=== PATIENT | female | born 1945 | race Caucasian/White ===

== ENCOUNTER 2023-10-09 15:35 | Emergency (ER) | payer MEDICARE, BC ==
[2023-10-09 15:49] VITALS: RESP 18
[2023-10-09] MEDS ORDERED: SODIUM CHLORIDE 0.9% 500 ML 500 ML IV STA (16:04)
[2023-10-09 16:37] LABS: Basophils % (A) 0 %; Eosinophils # (A) 0.1 k/uL (0-0.7); Eosinophils % (A) 2 %; HCT 31.7 % (34.0-46.0); HGB 10.6 gm/dL (11.4-16.0); Lymphocytes # (A) 0.8 k/uL (1.0-4.8); Lymphocytes % (A) 12 %; MCH 34.1 pg (25.0-35.0); MCHC 33.4 g/dL (31.0-37.0); MCV 102.3 fL (80.0-100.0); Macrocytosis Slight; Mean Platelet Volume 9.8; Monocytes # (A) 0.6 k/uL (0-1.0); Monocytes % (A) 8 %; Neutrophils # (A) 5.2 k/uL (1.3-7.7); Neutrophils % (A) 76 %; Platelet Count 187 k/uL (150-450); RDW 13.8 % (11.5-15.5); WBC 6.8 k/uL (3.8-10.6)
[2023-10-09 16:47] LABS: ALT 18 U/L (4-34); AST 18 U/L (14-36); African American GFR (CKD) 36 (>60 ml/min/1.73 sqM); Alkaline Phosphatase 113 U/L (38-126); Anion Gap 11 mmol/L; Blood Urea Nitrogen 38 mg/dL (7-17); Calcium 9.2 mg/dL (8.4-10.2); Carbon Dioxide 25 mmol/L (22-30); Chloride 97 mmol/L (98-107); Glucose 223 mg/dL (74-99); Magnesium 2.2 mg/dL (1.6-2.3); Non-African American GFR(CKD) 31 (>60 ml/min/1.73 sqM); Potassium 4.9 mmol/L (3.5-5.1); Sodium 133 mmol/L (137-145); Total Bilirubin 1.2 mg/dL (0.2-1.3); Total Protein 6.5 g/dL (6.3-8.2)
[2023-10-09 16:48] LABS: INR 1.1 (<1.2); Partial Thromboplastin Time 23.4 sec (22.0-30.0); Prothrombin Time 12.1 sec (10.0-12.5)
--- NOTE | 2023-10-09 16:54 | XR ---
EXAMINATION TYPE: XR chest 2V DATE OF EXAM: 10/09/2023 4:45 PM CLINICAL INDICATION:Female, 78 years old with history of Weakness.; COMPARISON: Chest radiographs from 08/16/2023 TECHNIQUE: XR chest 2V Frontal and lateral views of the chest. FINDINGS: Lungs/Pleura: There is no evidence of pleural effusion, focal consolidation, or pneumothorax. Pulmonary vascularity: Pulmonary vascular congestion. Heart/mediastinum: Cardiomediastinal silhouette is enlarged and stable. Atherosclerotic calcificatio ns are seen in the aorta. Left atrial appendage occlusion device is present. Single-lead cardiac cond uction device overlying the left hemithorax with lead projecting over the right ventricle. Musculoskeletal: No acute osseous pathology. Other findings: None IMPRESSION: Cardiomegaly and mild pulmonary vascular congestion. Correlate with BNP for congestive heart failure.
[2023-10-09 16:56] LABS: Appearance,Urine Cloudy (Clear); Bacteria,Urine Many /hpf; Bilirubin,Urine Negative (Negative); Blood,Urine Negative (Negative); Color,Urine Colorless; Glucose,Urine (UA) Negative (Negative); Hyaline Casts,Urine 12 /lpf (0-2); Ketones,Urine Negative (Negative); Leukocyte Esterase,Urine Small (Negative); Mucus,Urine Rare /hpf; Nitrite,Urine Positive (Negative); Protein,Urine Negative (Negative); Specific Gravity,Urine 1.008 (1.001-1.035); Squamous Epithelial Cell,Urine 6 /hpf (0-4); Urobilinogen,Urine <2.0 mg/dL (<2.0); WBC,Urine 21 /hpf (0-5)
[2023-10-09] MEDS ORDERED: NITROFURANTOIN MONOHYD/M-CRYST 100 MG CAP PO STA (18:03)
--- NOTE | 2023-10-09 18:09 | ED ---
General Adult HPI - General Chief complaint: Weakness Stated complaint: SAMIRA Time Seen by Provider: 10/09/23 15:45 Source: patient, RN notes reviewed, old records reviewed Mode of arrival: ambulatory Limitations: no limitations - History of Present Illness Initial comments: This is a 78-year-old female who presents emergency Department complaining that she's become more weak over the last week and she says sometimes when this happens potassium was high so she wanted to come in and be evaluated. Patient denies any fever chills per patient denies any chest pain difficulty breathing shortest breath per patient denies any abdominal pain patient denies nausea vomiting or diarrhea. Patient denies any headache patient denies numbness weakness. Patient denies any lightheadedness or dizziness. - Related Data Home Medications Medication Instructions Recorded Confirmed ALPRAZolam [Xanax] 0.25 mg PO Q8H PRN 08/16/23 08/16/23 Aspirin EC [Ecotrin Low Dose] 81 mg PO DAILY 08/16/23 08/16/23 Clopidogrel [Plavix] 75 mg PO DAILY 08/16/23 08/16/23 Ferrous Sulfate [Iron (65 MG 325 mg PO DAILY 08/16/23 08/16/23 Elemental)] Gabapentin [Neurontin] 300 mg PO BID 08/16/23 08/16/23 Insulin Aspart [NovoLOG Flexpen] See Protocol SQ ACHS 08/16/23 08/16/23 Insulin Glargine,Hum.rec.anlog 20 units SQ HS 08/16/23 08/16/23 [Lantus Solostar Pen] Nitroglycerin Sl Tabs [Nitrostat] 0.4 mg SUBLINGUAL Q5M PRN 08/16/23 08/16/23 Pantoprazole [Protonix] 40 mg PO DAILY 08/16/23 08/16/23 Vitamin D Otc (Unknown) 1 tab PO FR 08/16/23 08/16/23 allopurinoL 100 mg PO DAILY 08/16/23 08/16/23 calcitrioL [Calcitriol] 0.25 mcg PO FR 08/16/23 08/16/23 Previous Rx's Medication Instructions Recorded Furosemide [Lasix] 40 mg PO DAILY #0 08/18/23 carvediloL [Coreg*] 12.5 mg PO BID-W/MEALS #60 tab 08/18/23 Nitrofurantoin Monohyd/M-Cryst 100 mg PO Q12HR #14 cap 10/09/23 [Macrobid] Allergies Allergy/AdvReac Type Severity Reaction Status Date / Time cephalexin [From Keflex] Allergy Rash/Hives Verified 10/09/23 15:46 ciprofloxacin [From Cipro] Allergy Anaphylaxis Verified 10/09/23 15:46 levofloxacin [From Levaquin] Allergy Anaphylaxis Verified 10/09/23 15:46 mushroom Allergy Chest Pain Verified 10/09/23 15:46 simvastatin Allergy Unknown Verified 10/09/23 15:46 tramadol Allergy Anaphylaxis Verified 10/09/23 15:46 morphine AdvReac Vomiting Verified 10/09/23 15:46 Review of Systems ROS Statement: Those systems with pertinent positive or pertinent negative responses have been documented in the HPI. ROS Other: All systems not noted in ROS Statement are negative. Past Medical History Past Medical History: Chest Pain / Angina, Myocardial Infarction (AR) Additional Past Medical History / Comment(s): Kidney failure CKD Stage III, CHF, AR x3 Last Myocardial Infarction Date:: 2015 History of Any Multi-Drug Resistant Organisms: None Reported Past Surgical History: Appendectomy, Heart Catheterization With Stent, Hysterectomy, Pacemaker Additional Past Surgical History / Comment(s): CABG, Valve Repair, Cardiac Stents x7 Past Anesthesia/Blood Transfusion Reactions: No Reported Reaction Date of Last Stent Placement:: 2015 Type of Cardiac Device: AICD Device Placement Date:: 2015 Past Psychological History: No Psychological Hx Reported Smoking Status: Never smoker Past Alcohol Use History: None Reported Past Drug Use History: None Reported General Exam - General Exam Comments Initial Comments: GENERAL: Patient is well-developed and well-nourished. Patient is nontoxic and well- hydrated and is in mild distress. ENT: Neck is soft and supple. No significant lymphadenopathy is noted. Oropharynx is clear. Moist mucous membranes. Neck has full range of motion without eliciting any pain. EYES: The sclera were anicteric and conjunctiva were pink and moist. Extraocular movements were intact and pupils were equal round and reactive to light. Eyelids were unremarkable. PULMONARY: Unlabored respirations. Good breath sounds bilaterally. No audible rales rhonchi or wheezing was noted. CARDIOVASCULAR: There is a regular rate and rhythm without any murmurs gallops or rubs. ABDOMEN: Soft and nontender with normal bowel sounds. SKIN: Skin is clear with no lesions or rashes and otherwise unremarkable. NEUROLOGIC: Patient is alert and oriented x3. Cranial nerves II through XII are grossly intact. Motor and sensory are also intact. Normal speech, volume and content. Symmetrical smile. MUSCULOSKELETAL: Normal extremities with adequate strength and full range of motion. No lower e xtremity swelling or edema. No calf tenderness. LYMPHATICS: No significant lymphadenopathy is noted PSYCHIATRIC: Normal psychiatric evaluation. Limitations: no limitations Course Vital Signs 10/09/23 10/09/23 10/09/23 15:36 16:05 17:56 Temperature 98.6 F Pulse Rate 62 67 Pulse Rate [ 60 Stitching Machine Setter ] Respiratory 18 18 Rate Blood Pressure 142/58 143/75 O2 Sat by Pulse 95 97 Oximetry Medical Decision Making - Medical Decision Making EKG is interpreted by myself. EKG shows atrial fibrillation at 50 bpm QRS 142 QT intervals 46 QTC is 483. Patient's EKG shows a right bundle branch block. Was pt. sent in by a medical professional or institution (, PA, FARM EQUIPMENT SERVICE TECHNICIAN, urgent care, hospital, or retirement...) When possible be specific @ -No Did you speak to anyone other than the patient for history (EMS, parent, family, police, friend...)? What history was obtained from this source @ -No Did you review nursing and triage notes (agree or disagree)? Why? @ -I reviewed and agree with nursing and triage notes Were old charts reviewed (outside hosp., previous admission, EMS record, old EKG, old radiological studies, urgent care reports/EKG's, retirement records)? Report findings @ -No old charts were reviewed Differential Diagnosis (chest pain, altered mental status, abdominal pain women, abdominal pain men, vaginal bleeding, weakness, fever, dyspnea, syncope, headache, dizziness, GI bleed, back pain, seizure, CVA, palpatations, mental health, musculoskeletal)? @ -Differential Weakness: Hypoglycemia, shock, sepsis, hyponatremia, anemia, infection, AR, ETOH, adverse medicine reaction, overdose, stroke, this is not meant to be an all-inclusive list. EKG interpreted by me (3pts min.). @ -As above X-rays interpreted by me (1pt min.). @ -Chest X-ray shows no acute abnormality CT interpreted by me (1pt min.). @ -None done U/S interpreted by me (1pt. min.). @ -None done What testing was considered but not performed or refused? (CT, X-rays, U/S, labs)? Why? @ -None What meds were considered but not given or refused? Why? @ -None Did you discuss the management of the patient with other professionals (professionals i.e. , PA, FARM EQUIPMENT SERVICE TECHNICIAN, lab, RT, psych nurse, medical social consultant, engine generator assembler, teacher, prison officer, wrapper caser)? Give summary @ -No Was smoking cessation discussed for >3mins.? @ -No Was critical care preformed (if so, how long)? @ -No Were there social determinants of health that impacted care today? How? (Homelessness, low income, unemployed, alcoholism, drug addiction, transportation, low edu. Level, literacy, decrease access to med. care, fpc, rehab)? @ -No Was there de-escalation of care discussed even if they declined (Discuss DNR or withdrawal of care, Hospice)? DNR status @ -No What co-morbidities impacted this encounter? (DM, HTN, Smoking, COPD, CAD, Cancer, CVA, ARF, Chemo, Hep., AIDS, mental health diagnosis, sleep apnea, morbid obesity)? @ -None Was patient admitted / discharged? Hospital course, mention meds given and route, prescriptions, significant lab abnormalities, going to OR and other pert inent info. @ -I will back in the room and spoke with the patient about her results. Patient has a urinary tract infection so I gave her Macrodantin here and I prescribed Macrodantin for home. Patient was comfortable going home Undiagnosed new problem with uncertain prognosis? @ -No Drug Therapy requiring intensive monitoring for toxicity (Heparin, Nitro, Insulin, Cardizem)? @ -No Were any procedures done? @ -No Diagnosis/symptom? @ -Acute infection Acute, or Chronic, or Acute on Chronic? @ -Acute Uncomplicated (without systemic symptoms) or Complicated (systemic symptoms)? @ -Complicated Side effects of treatment? @ -No Exacerbation, Progression, or Severe Exacerbation? @ -No Poses a threat to life or bodily function? How? (Chest pain, USA, AR, pneumonia, PE, COPD, DKA, ARF, appy, cholecystitis, CVA, Diverticulitis, Homicidal, Suicidal, threat to staff... and all critical care pts) @ -No - Lab Data Result diagrams: 10/09/23 16:21 10/09/23 16:21 Lab Results 10/09/23 10/09/23 10/09/23 Range/Units 16:21 16:21 16:21 WBC 6.8 (3.8-10.6) k/uL RBC 3.10 L (3.80-5.40) m/uL Hgb 10.6 L (11.4-16.0) gm/dL Hct 31.7 L (34.0-46.0) % MCV 102.3 H (80.0-100.0) fL MCH 34.1 (25.0-35.0) pg MCHC 33.4 (31.0-37.0) g/dL RDW 13.8 (11.5-15.5) % Plt Count 187 (150-450) k/uL MPV 9.8 Neutrophils % 76 % Lymphocytes % 12 % Monocytes % 8 % Eosinophils % 2 % Basophils % 0 % Neutrophils # 5.2 (1.3-7.7) k/uL Lymphocytes # 0.8 L (1.0-4.8) k/uL Monocytes # 0.6 (0-1.0) k/uL Eosinophils # 0.1 (0-0.7) k/uL Basophils # 0.0 (0-0.2) k/uL Macrocytosis Slight PT 12.1 (10.0-12.5) sec INR 1.1 (<1.2) APTT 23.4 (22.0-30.0) sec Sodium (137-145) mmol/L Potassium (3.5-5.1) mmol/L Chloride (98-107) mmol/L Carbon Dioxide (22-30) mmol/L Anion Gap mmol/L BUN (7-17) mg/dL Creatinine (0.52-1.04) mg/dL Est GFR (CKD-EPI)AfAm (>60 ml/min/1.73 sqM) Est GFR (CKD-EPI)NonAf (>60 ml/min/1.73 sqM) Glucose (74-99) mg/dL Plasma Lactic Acid David (0.7-2.0) mmol/L Calcium (8.4-10.2) mg/dL Magnesium (1.6-2.3) mg/dL Total Bilirubin (0.2-1.3) mg/dL AST (14-36) U/L ALT (4-34) U/L Alkaline Phosphatase (38-126) U/L Troponin I (0.000-0.034) ng/mL Total Protein (6.3-8.2) g/dL Albumin (3.5-5.0) g/dL Urine Color Colorless Urine Appearance Cloudy H (Clear) Urine pH 5.0 (5.0-8.0) Ur Specific [place] 1.008 (1.001-1.035) Urine Protein Negative (Negative) Urine Glucose (UA) Negative (Negative) Urine Ketones Negative (Negative) Urine Blood Negative (Negative) Urine Nitrite Positive H (Negative) Urine Bilirubin Negative (Negative) Urine Urobilinogen <2.0 (<2.0) mg/dL Ur Leukocyte Esterase Small H (Negative) Urine WBC 21 H (0-5) /hpf Ur Squamous Epith Cells 6 H (0-4) /hpf Urine Bacteria Many H (None) /hpf Hyaline Casts 12 H (0-2) /lpf Urine Mucus Rare H (None) /hpf 10/09/23 10/09/23 10/09/23 Range/Units 16:21 16:21 16:21 WBC (3.8-10.6) k/uL RBC (3.80-5.40) m/uL Hgb (11.4-16.0) gm/dL Hct (34.0-46.0) % MCV (80.0-100.0) fL MCH (25.0-35.0) pg MCHC (31.0-37.0) g/dL RDW (11.5-15.5) % Plt Count (150-450) k/uL MPV Neutrophils % % Lymphocytes % % Monocytes % % Eosinophils % % Basophils % % Neutrophils # (1.3-7.7) k/uL Lymphocytes # (1.0-4.8) k/uL Monocytes # (0-1.0) k/uL Eosinophils # (0-0.7) k/uL Basophils # (0-0.2) k/uL Macrocytosis PT (10.0-12.5) sec INR (<1.2) APTT (22.0-30.0) sec Sodium 133 L (137-145) mmol/L Potassium 4.9 (3.5-5.1) mmol/L Chloride 97 L (98-107) mmol/L Carbon Dioxide 25 (22-30) mmol/L Anion Gap 11 mmol/L BUN 38 H (7-17) mg/dL Creatinine 1.58 H (0.52-1.04) mg/dL Est GFR (CKD-EPI)AfAm 36 (>60 ml/min/1.73 sqM) Est GFR (CKD-EPI)NonAf 31 (>60 ml/min/1.73 sqM) Glucose 223 H (74-99) mg/dL Plasma Lactic Acid David 1.0 (0.7-2.0) mmol/L Calcium 9.2 (8.4-10.2) mg/dL Magnesium 2.2 (1.6-2.3) mg/dL Total Bilirubin 1.2 (0.2-1.3) mg/dL AST 18 (14-36) U/L ALT 18 (4-34) U/L Alkaline Phosphatase 113 (38-126) U/L Troponin I <0.012 (0.000-0.034) ng/mL Total Protein 6.5 (6.3-8.2) g/dL Albumin 4.0 (3.5-5.0) g/dL Urine Color Urine Appearance (Clear) Urine pH (5.0-8.0) Ur Specific [place] (1.001-1.035) Urine Protein (Negative) Urine Glucose (UA) (Negative) Urine Ketones (Negative) Urine Blood (Negative) Urine Nitrite (Negative) Urine Bilirubin (Negative) Urine Urobilinogen (<2.0) mg/dL Ur Leukocyte Esterase (Negative) Urine WBC (0-5) /hpf Ur Squamous Epith Cells (0-4) /hpf Urine Bacteria (None) /hpf Hyaline Casts (0-2) /lpf Urine Mucus (None) /hpf Disposition Clinical Impression: Urinary tract infection Disposition: HOME SELF-CARE Condition: Good Instructions (If sedation given, give patient instructions): Urinary Tract Infection in Women (ED) Prescriptions: Nitrofurantoin Monohyd/M-Cryst [Macrobid] 100 mg PO Q12HR #14 cap Is patient prescribed a controlled substance at d/c from ED?: No Referrals: Jayesh Watson MD [Primary Care Provider] - 1-2 days
[2023-10-09 18:23] VITALS: BP 143/75; PULSE 67
[2023-10-09 19:12] VITALS: TEMP 98.1
== END 2023-10-09 18:54 | disposition home or self-care (01) ==
LOC: EC 15:35
DX: N39.0 Urinary tract infection, site not specified (principal); B97.0 Adenovirus as the cause of diseases classified elsewhere; I25.2 Old myocardial infarction; I50.9 Heart failure, unspecified; N18.30 Chronic kidney disease, stage 3 unspecified; Z79.82 Long term (current) use of aspirin; Z79.4 Long term (current) use of insulin; Z79.899 Other long term (current) drug therapy; Z88.1 Allergy status to other antibiotic agents; Z88.5 Allergy status to narcotic agent; Z88.8 Allergy status to other drugs, medicaments and biological substances; Z95.5 Presence of coronary angioplasty implant and graft; Z95.1 Presence of aortocoronary bypass graft
CPT/HCPCS: 36415; 71046; 80053; 81001; 83605; 83735; 84484; 85025; 85610; 85730; 87077; 87086; 87186; 93005; 96360; 99285

== ENCOUNTER 2024-05-26 15:09 | Emergency (ER) | payer MEDICARE, BC ==
--- NOTE | 2024-05-26 15:19 | ED ---
Abdominal Pain HPI - General Stated Complaint: Constipation Time Seen by Provider: 05/26/24 15:14 Source: RN notes reviewed, old records reviewed Mode of arrival: EMS Limitations: no limitations - History of Present Illness Initial Comments: This is a 79-year-old female to the ER for evaluation of abdominal pain. Patient presents today for evaluation of severe abdominal pain positive nausea no vomiting decreased bowel movements with usually normal bowel movement history MD Complaint: abdominal pain -: days(s) Location: periumbilical, epigastric Radiation: epigastric Migration to: no migration Severity: moderate Severity scale (1-10): 7 Quality: cramping, stabbing Consistency: constant Improves With: nothing Worsens With: nothing Associated Symptoms: nausea, vomiting Treatments Prior to Arrival: other (0) - Related Data Home Medications Medication Instructions Recorded Confirmed ALPRAZolam [Xanax] 0.25 mg PO Q8H PRN 08/16/23 08/16/23 Aspirin EC [Ecotrin Low Dose] 81 mg PO DAILY 08/16/23 08/16/23 Clopidogrel [Plavix] 75 mg PO DAILY 08/16/23 08/16/23 Ferrous Sulfate [Iron (65 MG 325 mg PO DAILY 08/16/23 08/16/23 Elemental)] Gabapentin [Neurontin] 300 mg PO BID 08/16/23 08/16/23 Insulin Aspart [NovoLOG Flexpen] See Protocol SQ ACHS 08/16/23 08/16/23 Insulin Glargine,Hum.rec.anlog 20 units SQ HS 08/16/23 08/16/23 [Lantus Solostar Pen] Nitroglycerin Sl Tabs [Nitrostat] 0.4 mg SUBLINGUAL Q5M PRN 08/16/23 08/16/23 Pantoprazole [Protonix] 40 mg PO DAILY 08/16/23 08/16/23 Vitamin D Otc (Unknown) 1 tab PO FR 08/16/23 08/16/23 allopurinoL 100 mg PO DAILY 08/16/23 08/16/23 calcitrioL 0.25 mcg PO FR 08/16/23 08/16/23 Previous Rx's Medication Instructions Recorded Furosemide [Lasix] 40 mg PO DAILY #0 08/18/23 carvediloL [Coreg*] 12.5 mg PO BID-W/MEALS #60 tab 08/18/23 Nitrofurantoin Monohyd/M-Cryst 100 mg PO Q12HR #14 cap 10/09/23 [Macrobid] Allergies Allergy/AdvReac Type Severity Reaction Status Date / Time cephalexin [From Keflex] Allergy Rash/Hives Verified 10/09/23 15:46 ciprofloxacin [From Cipro] Allergy Anaphylaxis Verified 10/09/23 15:46 levofloxacin [From Levaquin] Allergy Anaphylaxis Verified 10/09/23 15:46 mushroom Allergy Chest Pain Verified 10/09/23 15:46 simvastatin Allergy Unknown Verified 10/09/23 15:46 tramadol Allergy Anaphylaxis Verified 10/09/23 15:46 morphine AdvReac Vomiting Verified 10/09/23 15:46 Review of Systems ROS Statement: Those systems with pertinent positive or pertinent negative responses have been documented in the HPI. ROS Other: All systems not noted in ROS Statement are negative. Past Medical History Past Medical History: Chest Pain / Angina, Myocardial Infarction (MO) Additional Past Medical History / Comment(s): Kidney failure CKD Stage III, CHF, [place] x3 Last Myocardial Infarction Date:: 2015 History of Any Multi-Drug Resistant Organisms: None Reported Past Surgical History: Appendectomy, Heart Catheterization With Stent, Hysterectomy, Pacemaker Additional Past Surgical History / Comment(s): CABG, Valve Repair, Cardiac Stents x7 Past Anesthesia/Blood Transfusion Reactions: No Reported Reaction Date of Last Stent Placement:: 2015 Type of Cardiac Device: AICD Device Placement Date:: 2015 Past Psychological History: No Psychological Hx Reported Smoking Status: Never smoker Past Alcohol Use History: None Reported Past Drug Use History: None Reported General Exam General appearance: alert, in no apparent distress, anxious Head exam: Present: atraumatic, normocephalic, normal inspection Eye exam: Present: normal appearance, PERRL, EOMI. Absent: scleral icterus, conjunctival injection, periorbital swelling ENT exam: Present: normal exam, mucous membranes moist Neck exam: Present: normal inspection. Absent: tenderness, meningismus, ly mphadenopathy Respiratory exam: Present: normal lung sounds bilaterally. Absent: respiratory distress, wheezes, rales, rhonchi, stridor Cardiovascular Exam: Present: regular rate, bradycardia, normal heart sounds. Absent: systolic murmur, diastolic murmur, rubs, gallop, clicks GI/Abdominal exam: Present: soft, normal bowel sounds. Absent: distended, tenderness, guarding, rebound, rigid Extremities exam: Present: normal inspection, full ROM, normal capillary refill. Absent: tenderness, pedal edema, joint swelling, calf tenderness Back exam: Present: normal inspection Neurological exam: Present: alert, oriented X3, CN II-XII intact Psychiatric exam: Present: normal affect, normal mood Skin exam: Present: warm, dry, intact, normal color. Absent: rash Course Vital Signs 05/26/24 05/26/24 15:14 17:33 Temperature 98.7 F Pulse Rate 56 L 55 L Respiratory 18 18 Rate Blood Pressure 146/63 140/80 O2 Sat by Pulse 97 96 Oximetry - Reevaluation(s) Reevaluation #1: 05/26/24 15:29 Records reviewed Reevaluation #2: 05/26/24 15:29 Patient symptoms improved Reevaluation #3: Patient informed of results and questions answered Reevaluation #4: Was pt. sent in by a medical professional or institution (, PA, LIFE SCIENCE RESEARCH ASSISTANT, urgent care, hospital, or senior care...) When possible be specific @ -no Did you speak to anyone other than the patient for history (EMS, parent, family, police, friend...)? What history was obtained from this source @ -no Did you review nursing and triage notes (agree or disagree)? Why? @ -agree Are old charts reviewed (outside hosp., previous admission, EMS record, old EKG, old radiological studies, urgent care reports/EKG's, senior care records)? Report findings @ -yes Differential Diagnosis (chest pain, altered mental status, abdominal pain women, abdominal pain men, vaginal bleeding, weakness, fever, dyspnea, syncope, headache, dizziness, GI bleed, back pain, seizure, CVA, palpatations, mental health, musculoskeletal)? @ -prior EKG interpreted by me (3pts min.). @ -yes X-rays interpreted by me (1pt min.). @ -yes negative for acute disease CT interpreted by me (1pt min.). @ -Yes negative for acute disease U/S interpreted by me (1pt. min.). @ -no What testing was considered but not performed or refused? (CT, X-rays, U/S, labs)? Why? @ -none What meds were considered but not given or refused? Why? @ -none Did you discuss the management of the patient with other professionals (professionals i.e. , PA, LIFE SCIENCE RESEARCH ASSISTANT, lab, RT, psych nurse, social sciences chair, salesperson surgical appliances, teacher, humane officer, trimming caser)? Give summary @ -no Was smoking cessation discussed for >3mins.? @ -no Was critical care preformed (if so, how long)? @ -no Were there social determinants of health that impacted care today? How? (Homelessness, low income, unemployed, alcoholism, drug addiction, transportation, low edu. Level, literacy, decrease access to med. care, longterm, rehab)? @ -none Was there de-escalation of care discussed even if they declined (Discuss DNR or withdrawal of care, Hospice)? DNR status @ -no What co-morbidities impacted this encounter? (DM, HTN, Smoking, COPD, CAD, Cancer, CVA, ARF, Chemo, Hep., AIDS, mental health diagnosis, sleep apnea, morbid obesity)? @ -none Was patient admitted / discharged? Hospital course, mention meds given and route, prescriptions, significant lab abnormalities, going to OR and other pertinent info. @ - 79 female with nonspecific abdominal pain and no acute cause found. Patient's pain is well-controlled here in the ER feels well and can be discharged home Discharge Undiagnosed new problem with uncertain prognosis? @ -no Drug Therapy requiring intensive monitoring for toxicity (Heparin, Nitro, Insulin, Cardizem)? @ -no Were any procedures done? @ -no Diagnosis/symptom? @ -abdominal pain NOS Acute, or Chronic, or Acute on Chronic? @ -Acute Uncomplicated (without systemic symptoms) or Complicated (systemic symptoms)? @ -Complicated Side effects of treatment? @ -no Exacerbation, Progression, or Severe Exacerbation? @ -exacerbation Poses a threat to life or bodily function? How? (Chest pain, [place], MO, pneumonia, PE, COPD, DKA, ARF, appy, cholecystitis, CVA, Diverticulitis, Homicidal, Suicidal, threat to staff... and all critical care pts) @ -yes extremes of age Reevaluation #5: Differential Abdominal Pain Women: Appendicitis, Cholecystitis, diverticulosis, ischemic bowel, pancreatitis, hepatitis, UTI, gastroenteritis, AAA, incarcerated hernia, bowel obstruction, constipation, inflammatory bowel, hepatitis, peptic ulcer disease, splenic infarction, perforated viscus, vulvitis, ovarian torsion, PID, kidney stone, placenta abruption, this is not meant to be an all-inclusive list Medical Decision Making - Medical Decision Making 79 female with nonspecific abdominal pain and no acute cause found. Patient's pain is well-controlled here in the ER feels well and can be discharged home - Lab Data Result diagrams: 05/26/24 15:42 05/26/24 16:50 Lab Results 05/26/24 05/26/24 05/26/24 Range/Units 15:42 15:42 15:45 WBC 8.0 (3.8-10.6) k/uL RBC 3.20 L (3.80-5.40) m/uL Hgb 10.8 L (11.4-16.0) gm/dL Hct 33.5 L (34.0-46.0) % MCV 104.5 H (80.0-100.0) fL MCH 33.9 (25.0-35.0) pg MCHC 32.4 (31.0-37.0) g/dL RDW 14.0 (11.5-15.5) % Plt Count 171 (150-450) k/uL MPV 10.4 Neutrophils % 82 % Lymphocytes % 8 % Monocytes % 7 % Eosinophils % 1 % Basophils % 0 % Neutrophils # 6.6 (1.3-7.7) k/uL Lymphocytes # 0.6 L (1.0-4.8) k/uL Monocytes # 0.6 (0-1.0) k/uL Eosinophils # 0.1 (0-0.7) k/uL Basophils # 0.0 (0-0.2) k/uL Macrocytosis Moderate Sodium (137-145) mmol/L Potassium (3.5-5.1) mmol/L Chloride (98-107) mmol/L Carbon Dioxide (22-30) mmol/L Anion Gap mmol/L BUN (7-17) mg/dL Creatinine (0.52-1.04) mg/dL Est GFR (CKD-EPI)AfAm (>60 ml/min/1.73 sqM) Est GFR (CKD-EPI)NonAf (>60 ml/min/1.73 sqM) Glucose (74-99) mg/dL Plasma Lactic Acid David 0.7 (0.7-2.0) mmol/L Calcium (8.4-10.2) mg/dL Phosphorus (2.5-4.5) mg/dL Magnesium (1.6-2.3) mg/dL Total Bilirubin (0.2-1.3) mg/dL AST (14-36) U/L ALT (4-34) U/L Alkaline Phosphatase (38-126) U/L Troponin I <0.012 (0.000-0.034) ng/mL NT-Pro-B Natriuret Pep pg/mL Total Protein (6.3-8.2) g/dL Albumin (3.5-5.0) g/dL Amylase (30-110) U/L Lipase (23-300) U/L Urine Color Urine Appearance (Clear) Urine pH (5.0-8.0) Ur Specific [place] (1.001-1.035) Urine Protein (Negative) Urine Glucose (UA) (Negative) Urine Ketones (Negative) Urine Blood (Negative) Urine Nitrite (Negative) Urine Bilirubin (Negative) Urine Urobilinogen (<2.0) mg/dL Ur Leukocyte Esterase (Negative) Urine WBC (0-5) /hpf Ur Squamous Epith Cells (0-4) /hpf Urine Bacteria (None) /hpf 05/26/24 05/26/24 05/26/24 Range/Units 15:47 16:50 16:50 WBC (3.8-10.6) k/uL RBC (3.80-5.40) m/uL Hgb (11.4-16.0) gm/dL Hct (34.0-46.0) % MCV (80.0-100.0) fL MCH (25.0-35.0) pg MCHC (31.0-37.0) g/dL RDW (11.5-15.5) % Plt Count (150-450) k/uL MPV Neutrophils % % Lymphocytes % % Monocytes % % Eosinophils % % Basophils % % Neutrophils # (1.3-7.7) k/uL Lymphocytes # (1.0-4.8) k/uL Monocytes # (0-1.0) k/uL Eosinophils # (0-0.7) k/uL Basophils # (0-0.2) k/uL Macrocytosis Sodium 129 L (137-145) mmol/L Potassium 4.7 (3.5-5.1) mmol/L Chloride 93 L (98-107) mmol/L Carbon Dioxide 30 (22-30) mmol/L Anion Gap 6 mmol/L BUN 53 H (7-17) mg/dL Creatinine 1.76 H (0.52-1.04) mg/dL Est GFR (CKD-EPI)AfAm 31 (>60 ml/min/1.73 sqM) Est GFR (CKD-EPI)NonAf 27 (>60 ml/min/1.73 sqM) Glucose 141 H (74-99) mg/dL Plasma Lactic Acid David (0.7-2.0) mmol/L Calcium 9.2 (8.4-10.2) mg/dL Phosphorus 3.8 (2.5-4.5) mg/dL Magnesium 2.1 (1.6-2.3) mg/dL Total Bilirubin 1.6 H (0.2-1.3) mg/dL AST 19 (14-36) U/L ALT 12 (4-34) U/L Alkaline Phosphatase 82 (38-126) U/L Troponin I (0.000-0.034) ng/mL NT-Pro-B Natriuret Pep 43675 pg/mL Total Protein 6.3 (6.3-8.2) g/dL Albumin 4.1 (3.5-5.0) g/dL Amylase 49 (30-110) U/L Lipase 74 (23-300) U/L Urine Color Colorless Urine Appearance Clear (Clear) Urine pH 6.0 (5.0-8.0) Ur Specific [place] 1.007 (1.001-1.035) Urine Protein Negative (Negative) Urine Glucose (UA) Negative (Negative) Urine Ketones Negative (Negative) Urine Blood Negative (Negative) Urine Nitrite Negative (Negative) Urine Bilirubin Negative (Negative) Urine Urobilinogen <2.0 (<2.0) mg/dL Ur Leukocyte Esterase Trace H (Negative) Urine WBC 3 (0-5) /hpf Ur Squamous Epith Cells 3 (0-4) /hpf Urine Bacteria Many H (None) /hpf - EKG Data -: EKG Interpreted by Me (EKG is sinus bradycardia 55 NE 222 QRS 166 QTc 496) - Radiology Data Radiology results: report reviewed (CT abdomen pelvis and chest x-ray is negative for acute disease), image reviewed Disposition Clinical Impression: Abdominal pain Disposition: HOME SELF-CARE Condition: Good Instructions (If sedation given, give patient instructions): Abdominal Pain (ED) Is patient prescribed a controlled substance at d/c from ED?: No Referrals: Jayesh Watson MD [Primary Care Provider] - 1-2 days Time of Disposition: 17:00
[2024-05-26 15:21] VITALS: RESP 18; TEMP 98.7
[2024-05-26 15:59] LABS: Basophils % (A) 0 %; Eosinophils # (A) 0.1 k/uL (0-0.7); Eosinophils % (A) 1 %; HCT 33.5 % (34.0-46.0); HGB 10.8 gm/dL (11.4-16.0); Lymphocytes # (A) 0.6 k/uL (1.0-4.8); Lymphocytes % (A) 8 %; MCH 33.9 pg (25.0-35.0); MCHC 32.4 g/dL (31.0-37.0); MCV 104.5 fL (80.0-100.0); Macrocytosis Moderate; Mean Platelet Volume 10.4; Monocytes # (A) 0.6 k/uL (0-1.0); Monocytes % (A) 7 %; Neutrophils # (A) 6.6 k/uL (1.3-7.7); Neutrophils % (A) 82 %; Platelet Count 171 k/uL (150-450)
[2024-05-26] MEDS: SODIUM CHLORIDE 0.9% 1,000 ML IV STA ×2 (16:11→16:12)
[2024-05-26] MEDS: PANTOPRAZOLE 40 MG/10 ML VIAL IVP STA (16:12)
[2024-05-26] MEDS: KETOROLAC 15 MG/ML 1 ML VIAL IVP STA (16:13)
--- NOTE | 2024-05-26 16:26 | XR ---
EXAMINATION TYPE: XR chest 2V DATE OF EXAM: 05/26/2024 4:08 PM CLINICAL INDICATION:Female, 79 years old with history of SOB; COMPARISON: None TECHNIQUE: XR chest 2V Frontal view of the chest. FINDINGS: Lungs/Pleura: There is no evidence of pleural effusion, focal consolidation, or pneumothorax. Pulmonary vascularity: Unremarkable. Heart/mediastinum: Cardiomediastinal silhouette is enlarged and stable. Single-lead cardiac conductio n device overlying the left hemithorax with lead projecting over the right ventricle. Left atrial tsaci endage occlusion device is present. Musculoskeletal: No acute osseous pathology. Midline sternotomy wires are noted. Other findings: None IMPRESSION: No acute cardiopulmonary disease/process.
--- NOTE | 2024-05-26 16:33 | CT ---
EXAMINATION TYPE: CT abdomen pelvis wo con CT DLP: 625.4 mGycm, Automated exposure control for dose reduction was used. DATE OF EXAM: 05/26/2024 4:00 PM COMPARISON: None CLINICAL INDICATION:Female, 79 years old with history of abdominal pain; Lower abdominal pain x 3 day s TECHNIQUE: Axial CT abdomen pelvis wo con;Sagittal and coronal reformats were created on a separate workstation. Contrast used: mL of , (none if empty) Oral contrast used: without Oral Contrast (none if empty) FINDINGS: LOWER CHEST: Few scattered nodules are present left lower lobe somewhat groundglass halo measuring up to 15 mm hours enlarged for size. Cardiac conduction leads present. Severe coronary artery atheroscl erosis. Aortic valve calcifications. ABDOMEN LIVER: Nodular contour to liver no evidence for mass in this noncontrast exam GALLBLADDER AND BILE DUCTS: Unremarkable. PANCREAS: Unremarkable. SPLEEN: Unremarkable. ADRENAL GLANDS: Unremarkable. KIDNEYS AND URETERS: No evidence of hydronephrosis or renal calculus. The ureters are unremarkable. Simple appearing left renal cysts. PELVIS BLADDER: Unremarkable REPRODUCTIVE: The uterus is surgically absent. ABDOMEN & PELVIS STOMACH AND BOWEL: No evidence of bowel obstruction. Moderate hiatal hernia. Scattered colonic divert icula. PERITONEUM/RETROPERITONEUM: No evidence of pneumoperitoneum. There is trace free fluid in the pelvis. VASCULATURE: No evidence of aortic aneurysm. MUSCULOSKELETAL: No acute osseous abnormalities LYMPH NODES: No gross evidence for lymphadenopathy. SOFT TISSUE/ABDOMINAL WALL: Fat-containing umbilical hernia IMPRESSION: 1. No definitive acute lower abdominal process to explain the patient's pain. Free fluid in the andreas l within the abdomen limits evaluation for inflammation. 2. Few groundglass opacities in the left lung which are indeterminate short-term follow-up in one to 2 months recommended to ensure resolution correlate for pulmonary symptoms. 3. Moderate hiatal hernia. 4. Severe coronary artery cusp patient's. 5. Aortic valve consultations. 6. Nodular contour to liver correlate for cirrhosis. There is trace ascites 7. Cholelithiasis. 8. Colonic diverticulosis. 9. Moderate cardiomegaly.
[2024-05-26 17:08] LABS: Appearance,Urine Clear (Clear); Bacteria,Urine Many /hpf; Bilirubin,Urine Negative (Negative); Blood,Urine Negative (Negative); Color,Urine Colorless; Glucose,Urine (UA) Negative (Negative); Ketones,Urine Negative (Negative); Leukocyte Esterase,Urine Trace (Negative); Nitrite,Urine Negative (Negative); Protein,Urine Negative (Negative); Specific Gravity,Urine 1.007 (1.001-1.035); Squamous Epithelial Cell,Urine 3 /hpf (0-4); Urobilinogen,Urine <2.0 mg/dL (<2.0); WBC,Urine 3 /hpf (0-5)
[2024-05-26 17:24] LABS: ALT 12 U/L (4-34); AST 19 U/L (14-36); African American GFR (CKD) 31 (>60 ml/min/1.73 sqM); Albumin 4.1 g/dL (3.5-5.0); Alkaline Phosphatase 82 U/L (38-126); Amylase 49 U/L (30-110); Anion Gap 6 mmol/L; Blood Urea Nitrogen 53 mg/dL (7-17); Calcium 9.2 mg/dL (8.4-10.2); Carbon Dioxide 30 mmol/L (22-30); Chloride 93 mmol/L (98-107); Glucose 141 mg/dL (74-99); Lipase 74 U/L (23-300); Magnesium 2.1 mg/dL (1.6-2.3); Non-African American GFR(CKD) 27 (>60 ml/min/1.73 sqM); Phosphorus 3.8 mg/dL (2.5-4.5); Potassium 4.7 mmol/L (3.5-5.1); Sodium 129 mmol/L (137-145); Total Bilirubin 1.6 mg/dL (0.2-1.3); Total Protein 6.3 g/dL (6.3-8.2)
[2024-05-26 17:34] VITALS: BP 140/80; PULSE 55
== END 2024-05-26 18:01 | disposition home or self-care (01) ==
LOC: EC 15:09
DX: K57.30 Diverticulosis of large intestine without perforation or abscess without bleeding (principal); K80.20 Calculus of gallbladder without cholecystitis without obstruction; Z88.1 Allergy status to other antibiotic agents; Z88.5 Allergy status to narcotic agent; Z88.8 Allergy status to other drugs, medicaments and biological substances; Z95.1 Presence of aortocoronary bypass graft; Z95.5 Presence of coronary angioplasty implant and graft
CPT/HCPCS: 36415; 93005; 83880; 80053; 82150; 83605; 83690; 83735; 84100; 84484; 85025; 81001; 71046; 74176; 99285; 96374; 96375; J1885; J2470

== ENCOUNTER 2025-01-10 13:03 | Inpatient (IN) | payer MEDICARE, BC ==
[2025-01-10 14:39] LABS: ALT 11 U/L (4-34); AST 18 U/L (14-36); African American GFR (CKD) 19 (>60 ml/min/1.73 sqM); Albumin 2.5 g/dL (3.5-5.0); Alkaline Phosphatase 171 U/L (38-126); Anion Gap 8 mmol/L; Blood Urea Nitrogen 89 mg/dL (7-17); Calcium 7.7 mg/dL (8.4-10.2); Carbon Dioxide 28 mmol/L (22-30); Chloride 91 mmol/L (98-107); Glucose 102 mg/dL (74-99); Magnesium 1.8 mg/dL (1.6-2.3); Non-African American GFR(CKD) 16 (>60 ml/min/1.73 sqM); Potassium 5.1 mmol/L (3.5-5.1); Sodium 127 mmol/L (137-145); Total Bilirubin 1.5 mg/dL (0.2-1.3); Total Protein 4.8 g/dL (6.3-8.2)
[2025-01-10 14:48] LABS: INR 1.5 (<1.2); Partial Thromboplastin Time 22.1 sec (22.0-30.0)
[2025-01-10 15:02] LABS: Influenza A Not Detected (Not Detectd); Influenza B Not Detected (Not Detectd); RSV Not Detected (Not Detectd)
[2025-01-10 15:10] LABS: NT-Pro-B-Type Natriuretic Pept 38600 pg/mL
[2025-01-10 15:19] LABS: Anisocytosis Slight; HCT 27.3 % (34.0-46.0); Hypochromasia Slight; MCH 35.8 pg (25.0-35.0); MCHC 32.8 g/dL (31.0-37.0); MCV 109.3 fL (80.0-100.0); Macrocytosis Marked; Mean Platelet Volume 12.2; RDW 17.2 % (11.5-15.5); WBC 13.8 k/uL (3.8-10.6)
[2025-01-10 15:30] LABS: Appearance,Urine Clear (Clear); Bilirubin,Urine Negative (Negative); Blood,Urine Negative (Negative); Color,Urine Yellow; Glucose,Urine (UA) Negative (Negative); Ketones,Urine Negative (Negative); Leukocyte Esterase,Urine Negative (Negative); Nitrite,Urine Negative (Negative); Protein,Urine Trace (Negative); Specific Gravity,Urine 1.014 (1.001-1.035); Urobilinogen,Urine <2.0 mg/dL (<2.0)
--- NOTE | 2025-01-10 15:36 | ED ---
Weakness HPI <Brett Guzman - Last Filed: 01/10/25 18:13> - General Source: patient, EMS Mode of arrival: EMS <Tashi Recioninoska Shirley - Last Filed: 01/14/25 19:40> - General Chief complaint: Weakness Stated complaint: Weakness Time Seen by Provider: 01/10/25 13:15 - History of Present Illness Initial comments: 79-year-old female who presents emergency department for weakness. Patient was just released from rehab yesterday. Patient was hospitalized at [facility] for cholecystitis. She had a stent placed. Surgery was back in November. Patient was then sent to rehab. Son took her home yesterday and was expecting that she could manage on her own. He reports that she is having difficulty using the restroom and moving around the house. Son states he does not have capabilities of taking care of her. No report of any fevers. Son does admit to history of congestive heart failure however patient denies that she is having any difficulty breathing. No chest pain. Chronic lower and upper extremity swelling. No nausea or vomiting. She did eat breakfast today. No other alleviating, precipitating or modifying factors (Lucinda Recio) - Related Data Home Medications Medication Instructions Recorded Confirmed ALPRAZolam [Xanax] 0.25 mg PO Q8H PRN 08/16/23 01/10/25 Aspirin EC [Ecotrin Low Dose] 81 mg PO DAILY 08/16/23 01/10/25 Clopidogrel [Plavix] 75 mg PO DAILY 08/16/23 01/10/25 Ferrous Sulfate [Iron (65 MG 325 mg PO DAILY 08/16/23 01/10/25 Elemental)] Insulin Aspart [NovoLOG Flexpen] See Protocol SQ ACHS 08/16/23 01/10/25 Insulin Glargine,Hum.rec.anlog 10 units SQ HS 08/16/23 01/10/25 [Lantus Solostar Pen] Acetaminophen Tab [Tylenol] 650 mg PO Q4H PRN 01/10/25 01/10/25 Loperamide HCl [Loperamide] 2 mg PO Q4H PRN 01/10/25 01/10/25 Torsemide [Demadex] 20 mg PO DAILY 01/10/25 01/10/25 Previous Rx's Medication Instructions Recorded Famotidine [Pepcid] 40 mg PO DAILY #60 tab 01/14/25 Metoprolol Succinate (ER) [Toprol 25 mg PO BID #60 tab 01/14/25 XL] Ondansetron Odt [Zofran Odt] 4 mg PO Q8HR PRN #90 tab 01/14/25 Vancomycin HCl [Vancocin HCl] 125 mg PO QID #120 cap 01/14/25 Allergies Allergy/AdvReac Type Severity Reaction Status Date / Time cephalexin [From Keflex] Allergy Rash/Hives Verified 01/10/25 15:51 ciprofloxacin [From Cipro] Allergy Anaphylaxis Verified 01/10/25 15:51 levofloxacin [From Levaquin] Allergy Anaphylaxis Verified 01/10/25 15:51 mushroom Allergy Anaphylaxis Verified 01/10/25 15:51 tramadol Allergy Anaphylaxis Verified 01/10/25 15:51 iodine AdvReac Face Verified 01/10/25 15:51 turned red, Edema morphine AdvReac Vomiting Verified 01/10/25 15:51 simvastatin AdvReac severe leg Verified 01/10/25 15:51 cramps Review of Systems ROS Other: All systems not noted in ROS Statement are negative. <Brett Guzman - Last Filed: 01/10/25 18:13> ROS Other: All systems not noted in ROS Statement are negative. <Lucinda Recio - Last Filed: 01/14/25 19:40> ROS Statement: Those systems with pertinent positive or pertinent negative responses have been documented in the HPI. Past Medical History Past Medical History: Chest Pain / Angina, Myocardial Infarction (CT) Additional Past Medical History / Comment(s): Kidney failure CKD Stage III, CHF, CT x3 Last Myocardial Infarction Date:: 2015 History of Any Multi-Drug Resistant Organisms: None Reported Past Surgical History: Appendectomy, Heart Catheterization With Stent, Hysterectomy, Pacemaker Additional Past Surgical History / Comment(s): CABG, Valve Repair, Cardiac Stents x7 Past Anesthesia/Blood Transfusion Reactions: No Reported Reaction Date of Last Stent Placement:: 2015 Type of Cardiac Device: AICD Device Placement Date:: 2015 Past Psychological History: No Psychological Hx Reported Smoking Status: Never smoker Past Alcohol Use History: None Reported Past Drug Use History: None Reported <Lucinda Recio - Last Filed: 01/14/25 19:40> General Exam General appearance: alert, in no apparent distress Head exam: Present: atraumatic, normocephalic, normal inspection Eye exam: Present: normal appearance, PERRL, EOMI. Absent: scleral icterus, conjunctival injection, periorbital swelling ENT exam: Present: normal exam, mucous membranes moist Neck exam: Present: normal inspection. Absent: tenderness, meningismus, lymphadenopathy Respiratory exam: Present: rales. Absent: respiratory distress, wheezes, rhonchi, stridor Cardiovascular Exam: Present: regular rate, normal rhythm, normal heart sounds. Absent: systolic murmur, diastolic murmur, rubs, gallop, clicks GI/Abdominal exam: Present: soft, normal bowel sounds. Absent: distended, tenderness, guarding, rebound, rigid Extremities exam: Present: full ROM, pedal edema. Absent: tenderness, joint swelling, calf tenderness Back exam: Present: normal inspection Neurological exam: Present: alert, oriented X3, CN II-XII intact Psychiatric exam: Present: normal affect, normal mood Skin exam: Present: warm, dry, intact, normal color. Absent: rash <Lucinda Recio - Last Filed: 01/14/25 19:40> Course Vital Signs 01/10/25 01/10/25 01/10/25 13:12 15:00 17:00 Temperature 97.5 F L Pulse Rate 70 70 70 Respiratory 18 18 18 Rate Blood Pressure 105/52 110/53 106/50 O2 Sat by Pulse 94 L 95 94 L Oximetry 01/10/25 01/10/25 01/10/25 18:00 19:00 20:34 Temperature Pulse Rate 70 74 70 Respiratory 20 20 20 Rate Blood Pressure 114/58 115/54 118/97 O2 Sat by Pulse 95 96 92 L Oximetry Medical Decision Making - Lab Data Result diagrams: 01/10/25 15:09 01/10/25 14:18 <Brett Guzman - Last Filed: 01/10/25 18:13> - Lab Data Result diagrams: 01/13/25 05:16 01/14/25 04:25 <Lucinda Recio - Last Filed: 01/14/25 19:40> - Medical Decision Making Was patient admitted / discharged? Hospital course, mention meds given and route, prescriptions, significant lab abnormalities, going to OR and other pertinent info. @ -[I received this patient as a signout pending the last few studies. When these were finished I reviewed the results with patient and with family. The patient is not able to stand and ambulate at the bedside, therefore will be admitted, with PT, OT consult and also discharge planning for possible rehab versus prison. Case discussed with Dr. Matthew Undiagnosed new problem with uncertain prognosis? @ -[No] Drug Therapy requiring intensive monitoring for toxicity (Heparin, Nitro, Insulin, Cardizem)? @ -[No] Were any procedures done? @ -[No] Diagnosis/symptom? @ -[Acute generalized weakness Inability to ambulate Acute, or Chronic, or Acute on Chronic? @ -[Acute Uncomplicated (without systemic symptoms) or Complicated (systemic symptoms)? @ -[Uncomplicated Side effects of treatment? @ -[No] Exacerbation, Progression, or Severe Exacerbation? @ -[No] Poses a threat to life or bodily function? How? (Chest pain, USA, CT, pneumonia, PE, COPD, DKA, ARF, appy, cholecystitis, CVA, Diverticulitis, Homicidal, Suicidal, threat to staff... and all critical care pts) @ -[No] All treatments are based on ideal body weight as in ED triage (Brett Guzman) Was pt. sent in by a medical professional or institution (, PA, MERCHANDISING PROFESSOR, urgent care, hospital, or prison...) When possible be specific @ -No Did you speak to anyone other than the patient for history (EMS, parent, family, police, friend...)? What history was obtained from this source @ -Spoke with son for history Did you review nursing and triage notes (agree or disagree)? Why? @ -I reviewed and agree with nursing and triage notes Were old charts reviewed (outside hosp., previous admission, EMS record, old EKG, old radiological studies, urgent care reports/EKG's, prison records)? Report findings @ -I reviewed discharge paperwork from [facility] where the patient was discharged 2 weeks ago Differential Diagnosis (chest pain, altered mental status, abdominal pain women, abdominal pain men, vaginal bleeding, weakness, fever, dyspnea, syncope, headache, dizziness, GI bleed, back pain, seizure, CVA, palpatations, mental health, musculoskeletal)? @ -Differential Weakness: Hypoglycemia, shock, sepsis, hyponatremia, anemia, infection, CT, ETOH, adverse medicine reaction, overdose, stroke, this is not meant to be an all-inclusive list. EKG interpreted by me (3pts min.). @ -Yes and demonstrates atrial pacemaker with a rate of 70. OR interval 209. QRS 152. QTc of 474. Pacemaker captures appropriately X-rays interpreted by me (1pt min.). @ -Pending at this time CT interpreted by me (1pt min.). @ -None done U/S interpreted by me (1pt. min.). @ -None done What testing was considered but not performed or refused? (CT, X-rays, U/S, labs)? Why? @ -None What meds were considered but not given or refused? Why? @ -None Did you discuss the management of the patient with other professionals (professionals i.e. , PA, MERCHANDISING PROFESSOR, lab, RT, psych nurse, social research assistant, door closer mechanic, teacher, correction officer reformatory, disease case manager rn)? Give summary @ -Spoke with Dr. Guzman who will follow the remainder of the studies and dispo the patient Was smoking cessation discussed for >3mins.? @ -No Was critical care preformed (if so, how long)? @ -No Were there social determinants of health that impacted care today? How? (Homelessness, low income, unemployed, alcoholism, drug addiction, transportation, low edu. Level, literacy, decrease access to med. care, skilled nursing, rehab)? @ -No Was there de-escalation of care discussed even if they declined (Discuss DNR or withdrawal of care, Hospice)? DNR status @ -No What co-morbidities impacted this encounter? (DM, HTN, Smoking, COPD, CAD, Cancer, CVA, ARF, Chemo, Hep., AIDS, mental health diagnosis, sleep apnea, morbid obesity)? @ -Congestive heart failure Was patient admitted / discharged? Hospital course, mention meds given and route, prescriptions, significant lab abnormalities, going to OR and other pertinent info. @ -Upon arrival patient seen and evaluated in bed 19. Thorough history and physical exam was performed. IV access was established. Laboratory studies are conducted. Chest x-ray is performed. Chest x-ray is pending at this time and patient will be signed out to Dr. Goetz for disposition Undiagnosed new problem with uncertain prognosis? @ -No Drug Therapy requiring intensive monitoring for toxicity (Heparin, Nitro, Insulin, Cardizem)? @ -No Were any procedures done? @ -No Diagnosis/symptom? @ -Acute weakness, inability to ambulate Acute, or Chronic, or Acute on Chronic? @ -Acute Uncomplicated (without systemic symptoms) or Complicated (systemic symptoms)? @ -Complicated Side effects of treatment? @ -No Exacerbation, Progression, or Severe Exacerbation? @ -Yes Poses a threat to life or bodily function? How? (Chest pain, USA, CT, pneumonia, PE, COPD, DKA, ARF, appy, cholecystitis, CVA, Diverticulitis, Homicidal, Suicidal, threat to staff... and all critical care pts) @ -No (Lucinda Recio) - Lab Data Lab Results 01/10/25 01/10/25 01/10/25 Range/Units 14:18 14:18 14:18 WBC (3.8-10.6) k/uL RBC (3.80-5.40) m/uL Hgb (11.4-16.0) gm/dL Hct (34.0-46.0) % MCV (80.0-100.0) fL MCH (25.0-35.0) pg MCHC (31.0-37.0) g/dL RDW (11.5-15.5) % Plt Count (150-450) k/uL MPV Neutrophils % (Manual) % Band Neuts % (Manual) % Lymphocytes % (Manual) % Monocytes % (Manual) % Eosinophils % (Manual) % Neutrophils # (Manual) (1.3-7.7) k/uL Lymphocytes # (Manual) (1.0-4.8) k/uL Monocytes # (Manual) (0-1.0) k/uL Eosinophils # (Manual) (0-0.7) k/uL Nucleated RBCs (0-0) /100 WBC Manual Slide Review Hypochromasia Anisocytosis Macrocytosis PT 16.0 H (10.0-12.5) sec INR 1.5 H (<1.2) APTT 22.1 (22.0-30.0) sec Sodium 127 L (137-145) mmol/L Potassium 5.1 (3.5-5.1) mmol/L Chloride 91 L (98-107) mmol/L Carbon Dioxide 28 (22-30) mmol/L Anion Gap 8 mmol/L BUN 89 H (7-17) mg/dL Creatinine 2.69 H (0.52-1.04) mg/dL Est GFR (CKD-EPI)AfAm 19 (>60 ml/min/1.73 sqM) Est GFR (CKD-EPI)NonAf 16 (>60 ml/min/1.73 sqM) Glucose 102 H (74-99) mg/dL Plasma Lactic Acid David 0.9 (0.7-2.0) mmol/L Calcium 7.7 L (8.4-10.2) mg/dL Magnesium 1.8 (1.6-2.3) mg/dL Total Bilirubin 1.5 H (0.2-1.3) mg/dL AST 18 (14-36) U/L ALT 11 (4-34) U/L Alkaline Phosphatase 171 H (38-126) U/L Troponin I (0.000-0.034) ng/mL NT-Pro-B Natriuret Pep 89769 pg/mL Total Protein 4.8 L (6.3-8.2) g/dL Albumin 2.5 L (3.5-5.0) g/dL Urine Color Urine Appearance (Clear) Urine pH (5.0-8.0) Ur Specific [place] (1.001-1.035) Urine Protein (Negative) Urine Glucose (UA) (Negative) Urine Ketones (Negative) Urine Blood (Negative) Urine Nitrite (Negative) Urine Bilirubin (Negative) Urine Urobilinogen (<2.0) mg/dL Ur Leukocyte Esterase (Negative) Influenza Type A (PCR) (Not Detectd) Influenza Type B (PCR) (Not Detectd) RSV (PCR) (Not Detectd) SARS-CoV-2 (PCR) (Not Detectd) 01/10/25 01/10/25 01/10/25 Range/Units 14:18 14:18 15:07 WBC (3.8-10.6) k/uL RBC (3.80-5.40) m/uL Hgb (11.4-16.0) gm/dL Hct (34.0-46.0) % MCV (80.0-100.0) fL MCH (25.0-35.0) pg MCHC (31.0-37.0) g/dL RDW (11.5-15.5) % Plt Count (150-450) k/uL MPV Neutrophils % (Manual) % Band Neuts % (Manual) % Lymphocytes % (Manual) % Monocytes % (Manual) % Eosinophils % (Manual) % Neutrophils # (Manual) (1.3-7.7) k/uL Lymphocytes # (Manual) (1.0-4.8) k/uL Monocytes # (Manual) (0-1.0) k/uL Eosinophils # (Manual) (0-0.7) k/uL Nucleated RBCs (0-0) /100 WBC Manual Slide Review Hypochromasia Anisocytosis Macrocytosis PT (10.0-12.5) sec INR (<1.2) APTT (22.0-30.0) sec Sodium (137-145) mmol/L Potassium (3.5-5.1) mmol/L Chloride (98-107) mmol/L Carbon Dioxide (22-30) mmol/L Anion Gap mmol/L BUN (7-17) mg/dL Creatinine (0.52-1.04) mg/dL Est GFR (CKD-EPI)AfAm (>60 ml/min/1.73 sqM) Est GFR (CKD-EPI)NonAf (>60 ml/min/1.73 sqM) Glucose (74-99) mg/dL Plasma Lactic Acid David (0.7-2.0) mmol/L Calcium (8.4-10.2) mg/dL Magnesium (1.6-2.3) mg/dL Total Bilirubin (0.2-1.3) mg/dL AST (14-36) U/L ALT (4-34) U/L Alkaline Phosphatase (38-126) U/L Troponin I 0.013 (0.000-0.034) ng/mL NT-Pro-B Natriuret Pep pg/mL Total Protein (6.3-8.2) g/dL Albumin (3.5-5.0) g/dL Urine Color Yellow Urine Appearance Clear (Clear) Urine pH 5.0 (5.0-8.0) Ur Specific [place] 1.014 (1.001-1.035) Urine Protein Trace H (Negative) Urine Glucose (UA) Negative (Negative) Urine Ketones Negative (Negative) Urine Blood Negative (Negative) Urine Nitrite Negative (Negative) Urine Bilirubin Negative (Negative) Urine Urobilinogen <2.0 (<2.0) mg/dL Ur Leukocyte Esterase Negative (Negative) Influenza Type A (PCR) Not Detected (Not Detectd) Influenza Type B (PCR) Not Detected (Not Detectd) RSV (PCR) Not Detected (Not Detectd) SARS-CoV-2 (PCR) Not Detected (Not Detectd) 01/10/25 Range/Units 15:09 WBC 13.8 H (3.8-10.6) k/uL RBC 2.50 L (3.80-5.40) m/uL Hgb 9.0 L (11.4-16.0) gm/dL Hct 27.3 L (34.0-46.0) % MCV 109.3 H (80.0-100.0) fL MCH 35.8 H (25.0-35.0) pg MCHC 32.8 (31.0-37.0) g/dL RDW 17.2 H (11.5-15.5) % Plt Count 103 L (150-450) k/uL MPV 12.2 Neutrophils % (Manual) 85 % Band Neuts % (Manual) 2 % Lymphocytes % (Manual) 4 % Monocytes % (Manual) 8 % Eosinophils % (Manual) 1 % Neutrophils # (Manual) 12.00 H (1.3-7.7) k/uL Lymphocytes # (Manual) 0.55 L (1.0-4.8) k/uL Monocytes # (Manual) 1.10 H (0-1.0) k/uL Eosinophils # (Manual) 0.14 (0-0.7) k/uL Nucleated RBCs 0 (0-0) /100 WBC Manual Slide Review Performed Hypochromasia Slight Anisocytosis Slight Macrocytosis Marked A PT (10.0-12.5) sec INR (<1.2) APTT (22.0-30.0) sec Sodium (137-145) mmol/L Potassium (3.5-5.1) mmol/L Chloride (98-107) mmol/L Carbon Dioxide (22-30) mmol/L Anion Gap mmol/L BUN (7-17) mg/dL Creatinine (0.52-1.04) mg/dL Est GFR (CKD-EPI)AfAm (>60 ml/min/1.73 sqM) Est GFR (CKD-EPI)NonAf (>60 ml/min/1.73 sqM) Glucose (74-99) mg/dL Plasma Lactic Acid David (0.7-2.0) mmol/L Calcium (8.4-10.2) mg/dL Magnesium (1.6-2.3) mg/dL Total Bilirubin (0.2-1.3) mg/dL AST (14-36) U/L ALT (4-34) U/L Alkaline Phosphatase (38-126) U/L Troponin I (0.000-0.034) ng/mL NT-Pro-B Natriuret Pep pg/mL Total Protein (6.3-8.2) g/dL Albumin (3.5-5.0) g/dL Urine Color Urine Appearance (Clear) Urine pH (5.0-8.0) Ur Specific [place] (1.001-1.035) Urine Protein (Negative) Urine Glucose (UA) (Negative) Urine Ketones (Negative) Urine Blood (Negative) Urine Nitrite (Negative) Urine Bilirubin (Negative) Urine Urobilinogen (<2.0) mg/dL Ur Leukocyte Esterase (Negative) Influenza Type A (PCR) (Not Detectd) Influenza Type B (PCR) (Not Detectd) RSV (PCR) (Not Detectd) SARS-CoV-2 (PCR) (Not Detectd) Disposition <Brett Guzman - Last Filed: 01/10/25 18:13> Is patient prescribed a controlled substance at d/c from ED?: No <Lucinda Recio - Last Filed: 01/14/25 19:40> Clinical Impression: Weakness, Heart failure Disposition: ADMITTED IP TO THIS HOSP Condition: Stable
--- NOTE | 2025-01-10 15:50 | XR ---
EXAMINATION TYPE: XR chest 2V DATE OF EXAM: 01/10/2025 3:44 PM COMPARISON: Chest radiographs from 05/26/2024. CLINICAL INDICATION: Female, 79 years old with history of Weakness; TECHNIQUE: XR chest 2V Frontal and lateral views of the chest. FINDINGS: Lungs/Pleura: There is no evidence of pleural effusion, focal consolidation, or pneumothorax. Pulmonary vascularity: Pulmonary vascular congestion. Heart/mediastinum: Cardiomediastinal silhouette is enlarged and stable. Atherosclerotic calcificatio ns are seen in the aorta. Three lead cardiac conduction device overlying the left hemithorax with lida d tips projecting over the right ventricle, right atrium and coronary sinus. Left atrial appendage oc clusion device is present. Musculoskeletal: No acute osseous pathology. IMPRESSION: 1. No acute cardiopulmonary disease process. 2. COPD changes. [facility], , 01/10/2025 3:47 PM
[2025-01-10 16:43] LABS: Band Neutrophils % 2 %; Eosinophils # (M) 0.14 k/uL (0-0.7); Lymphocytes # (M) 0.55 k/uL (1.0-4.8); Neutrophils % (M) 85 %; Nucleated Red Blood Cells 0 /100 WBC (0-0); Total Cells Counted 100
[2025-01-10 16:45] LABS: Platelet Count 103 k/uL (150-450)
[2025-01-10] MEDS ORDERED: NALOXONE 0.4 MG/ML 1 ML VIAL IV PRN (17:57)
[2025-01-10] MEDS ORDERED: ACETAMINOPHEN TAB 325 MG TAB PO PRN (17:57)
[2025-01-10] MEDS: SODIUM CHLORIDE 0.9% 1,000 ML IV SCH (19:25)
[2025-01-10] MEDS ORDERED: FAMOTIDINE 20 MG TAB PO SCH (21:00)
[2025-01-10] MEDS: METOPROLOL SUCCINATE (ER) 25 MG TAB.ER.24H PO SCH (22:18)
[2025-01-10] MEDS: FAMOTIDINE 20 MG TAB PO SCH (22:18)
[2025-01-10 22:20] LABS: Glucose,Whole Blood 283 mg/dL (70-110)
[2025-01-10] MEDS: INSULIN GLARGINE (LANTUS) 100 UNIT/ML SYR SQ SCH (22:20)
[2025-01-10] MEDS ORDERED: diphenhydrAMINE 50 MG CAP PO PRN (23:49)
[2025-01-11] MEDS: diphenhydrAMINE 25 MG CAP PO PRN (02:17)
[2025-01-11] MEDS: VANCOMYCIN 125 MG CAPSULE PO SCH (06:30)
[2025-01-11] MEDS ORDERED: DEXTROSE 50% SYRINGE 50 ML IVP PRN ×4 (08:06→08:13)
[2025-01-11] MEDS: FERROUS SULFATE 325 MG TAB PO SCH (09:39)
[2025-01-11] MEDS: ASPIRIN 81 MG PO SCH (09:39)
[2025-01-11] MEDS: CLOPIDOGREL 75 MG TAB PO SCH (09:39)
[2025-01-11 12:07] LABS: Glucose,Whole Blood 223 mg/dL (70-110)
[2025-01-11 12:08] VITALS: BMI 29.2
[2025-01-11] MEDS: INSULIN LISPRO (HumaLOG) 100 UNIT/ML 10 mL VL SQ SCH (12:42)
[2025-01-11] MEDS: ONDANSETRON 4 MG/2 ML VIAL IVP PRN (13:13)
[2025-01-11 17:01] LABS: Glucose,Whole Blood 159 mg/dL (70-110)
--- NOTE | 2025-01-11 17:05 | P.HPIM ---
History of Present Illness H&P Date: 01/11/25 Chief Complaint: Weak and tired Pleasant 79-year-old patient follows with Dr. Jayesh Watson. Chronic stable medical conditions include CAD with stent , duodenal ulcer, irritable bowel syndrome, osteoarthritis, peripheral neuropathy in both hand and feet, hyperuricemia. Patient is discharged from rehab 2 days ago from [facility]. Has been admitted there following cholecystectomy. Patient was feeling very weak. Could just about transfer to the commode. Decreased appetite. Patient states she has been having at least 3-4 bowel movements a day for close to a month. As she could not able to make it she presented to the ER. Overnight patient stool tested positive for C. difficile. Started on vancomycin. Review of systems: GEN.: Tired, decreased appetite EYES: None HEENT: Has dentures NECK: None RESPIRATORY: As above CARDIOVASCULAR: As above GASTROINTESTINAL: As above GENITOURINARY: None MUSCULOSKELETAL: Joint pains and weakness LYMPHATICS: None HEMATOLOGICAL: None PSYCHIATRY: None NEUROLOGICAL: Does use a walker at baseline Social history: Lives alone. No smoking or alcohol. Does use a walker. Physical examination: VITAL SIGNS: 97.8, 70, 16, 103 x 62, 96% room air GENERAL: BMI 29.2, laying in bed tired appearing, scattered bruising EYES: Pupils equal. Conjunctiva normal. HEENT: External appearance of nose and ears normal, oral cavity grossly normal. No dentures. NECK: JVD possibly raised; masses not palpable. HEART: First and second heart sounds are normal; edema present LUNGS: Respiratory rate normal; clear to auscultation. ABDOMEN: Soft, nontender, liver spleen not palpable, no masses palpable. PSYCH: Alert and oriented x3; mood and affect tired l. MUSCULOSKELETAL:No Clubbing/cyanosis;muscles-grossly intact. OA NEUROLOGICAL: Cranial nerves grossly intact; no facial asymmetry, power and sensation grossly intact. LYMPHATICS: No lymph nodes palpable in the axilla and neck INVESTIGATIONS, reviewed in the clinical context: January 10: White count 13.8 hemoglobin 9 platelets 103 sodium 127 potassium 5.1 BUN 89 creatinine 2.69 albumin 2.5 proBNP [id number] C. difficile positive Influenza type A, type B, RSV, SARS-CoV-2: Not detected EKG tracing personally reviewed by me-atrial ventricular pacing Chest x-ray film personally reviewed by me-cardiomegaly 2023 2-D echocardiogram EF 25-30%. Hypokinesia of certain william. Aortic valve sclerosis. Moderate mitral and tricuspid regurgitation. Assessment and plan: -Acute C. difficile colitis, symptoms present for close to a month causing severe asthenia weakness Vancomycin 125 mg p.o. 4 times daily. Soft diet - chronic congestive heart failure from systolic dysfunction EF 25-30%, Normally takes Demadex. Currently clinically dehydrated. Hold the same. -Acute medical asthenia from C. difficile colitis PT OT -Chronic kidney disease stage III. Likely nephrosclerosis., Possibly diabetic nephropathy Follow renal function -Macrocytic anemia Check B12 folate, iron studies -Mild thrombocytopenia -Chronic irritable bowel syndrome -Primary osteoarthritis Tylenol as needed -Peptic ulcer disease, duodenal ulcer Protonix 40 mg a day -Diabetic peripheral neuropathy Neurontin -Hyperuricemia Allopurinol -Chronic gait dysfunction, uses a walker at baseline -Diabetes mellitus type 2, chronically on insulin Levemir. Sliding scale insulin coverage -Full code. Patient's son is the POA Discussed with patient. Given the complexity and severity of patient's condition expect the patient to be in the hospital at least for 2 overnights patient's barely able to get out of bed. Past Medical History Past Medical History: Chest Pain / Angina, Diabetes Mellitus, Myocardial Infarction ([place]) Additional Past Medical History / Comment(s): Kidney failure CKD Stage III, CHF, [place] x3 Last Myocardial Infarction Date:: 2015 History of Any Multi-Drug Resistant Organisms: None Reported Past Surgical History: Appendectomy, Heart Catheterization With Stent, Hysterectomy, Pacemaker Additional Past Surgical History / Comment(s): CABG, Valve Repair, Cardiac Stents x7, gallbladder stent Past Anesthesia/Blood Transfusion Reactions: No Reported Reaction Date of Last Stent Placement:: 2015 Type of Cardiac Device: AICD Device Placement Date:: 2015 Past Psychological History: No Psychological Hx Reported Smoking Status: Former smoker Past Alcohol Use History: None Reported Past Drug Use History: None Reported - Past Family History Father Family Medical History: Renal Disease Additional Family Medical History / Comment(s): Father passed from renal failure Mother Family Medical History: Myocardial Infarction ([place]) Additional Family Medical History / Comment(s): Mother from heart attack Medications and Allergies Home Medications Medication Instructions Recorded Confirmed Type ALPRAZolam [Xanax] 0.25 mg PO Q8H PRN 08/16/23 01/10/25 History Aspirin EC [Ecotrin Low Dose] 81 mg PO DAILY 08/16/23 01/10/25 History Clopidogrel [Plavix] 75 mg PO DAILY 08/16/23 01/10/25 History Ferrous Sulfate [Iron (65 MG 325 mg PO DAILY 08/16/23 01/10/25 History Elemental)] Insulin Aspart [NovoLOG Flexpen] See Protocol SQ ACHS 08/16/23 01/10/25 History Insulin Glargine,Hum.rec.anlog 10 units SQ HS 08/16/23 01/10/25 History [Lantus Solostar Pen] Acetaminophen Tab [Tylenol] 650 mg PO Q4H PRN 01/10/25 01/10/25 History Loperamide HCl [Loperamide] 2 mg PO Q4H PRN 01/10/25 01/10/25 History Metoprolol Succinate (ER) [Toprol 25 mg PO BID 01/10/25 01/10/25 History Xl] Multivitamins, Thera [Multivitamin 1 tab PO DAILY 01/10/25 01/10/25 History (formulary)] Torsemide [Demadex] 20 mg PO DAILY 01/10/25 01/10/25 History Allergies Allergy/AdvReac Type Severity Reaction Status Date / Time cephalexin [From Keflex] Allergy Rash/Hives Verified 01/10/25 15:51 ciprofloxacin [From Cipro] Allergy Anaphylaxis Verified 01/10/25 15:51 levofloxacin [From Levaquin] Allergy Anaphylaxis Verified 01/10/25 15:51 mushroom Allergy Anaphylaxis Verified 01/10/25 15:51 tramadol Allergy Anaphylaxis Verified 01/10/25 15:51 iodine AdvReac Face Verified 01/10/25 15:51 turned red, Edema morphine AdvReac Vomiting Verified 01/10/25 15:51 simvastatin AdvReac severe leg Verified 01/10/25 15:51 cramps Physical Exam Vitals: Vital Signs Temp Pulse Pulse Resp BP BP Pulse Ox 01/11/25 08:00 70 16 01/11/25 07:39 97.8 F 70 16 103/62 96 01/11/25 02:00 97.5 F L 70 14 142/62 96 01/10/25 20:34 70 20 118/97 92 L 01/10/25 19:00 74 20 115/54 96 01/10/25 18:00 70 20 114/58 95 01/10/25 17:00 70 18 106/50 94 L 01/10/25 15:00 70 18 110/53 95 01/10/25 13:12 97.5 F L 70 18 105/52 94 L Intake and Output 01/10/25 01/11/25 01/11/25 22:59 06:59 14:59 Intake Total 525 Balance 525 Intake: Intake, IV Titration 525 Amount Sodium Chloride 0.9% 1, 525 000 ml @ 75 mls/hr IV . [id number] [facility] Rx#:[id number] Other: Voiding Method External Catheter External Catheter Weight 77.111 kg Results CBC & Chem 7: 01/10/25 15:09 01/10/25 14:18 Labs: Abnormal Lab Results - Last 24 Hours (Table) 01/10/25 01/10/25 01/10/25 Range/Units 14:18 14:18 15:07 WBC (3.8-10.6) k/uL RBC (3.80-5.40) m/uL Hgb (11.4-16.0) gm/dL Hct (34.0-46.0) % MCV (80.0-100.0) fL MCH (25.0-35.0) pg RDW (11.5-15.5) % Plt Count (150-450) k/uL Neutrophils # (Manual) (1.3-7.7) k/uL Lymphocytes # (Manual) (1.0-4.8) k/uL Monocytes # (Manual) (0-1.0) k/uL Macrocytosis PT 16.0 H (10.0-12.5) sec INR 1.5 H (<1.2) Sodium 127 L (137-145) mmol/L Chloride 91 L (98-107) mmol/L BUN 89 H (7-17) mg/dL Creatinine 2.69 H (0.52-1.04) mg/dL Glucose 102 H (74-99) mg/dL POC Glucose (mg/dL) (70-110) mg/dL Calcium 7.7 L (8.4-10.2) mg/dL Total Bilirubin 1.5 H (0.2-1.3) mg/dL Alkaline Phosphatase 171 H (38-126) U/L Total Protein 4.8 L (6.3-8.2) g/dL Albumin 2.5 L (3.5-5.0) g/dL Urine Protein Trace H (Negative) C. difficile (EIA) Intrp (Negative) 01/10/25 01/10/25 01/11/25 Range/Units 15:09 22:19 00:00 WBC 13.8 H (3.8-10.6) k/uL RBC 2.50 L (3.80-5.40) m/uL Hgb 9.0 L (11.4-16.0) gm/dL Hct 27.3 L (34.0-46.0) % MCV 109.3 H (80.0-100.0) fL MCH 35.8 H (25.0-35.0) pg RDW 17.2 H (11.5-15.5) % Plt Count 103 L (150-450) k/uL Neutrophils # (Manual) 12.00 H (1.3-7.7) k/uL Lymphocytes # (Manual) 0.55 L (1.0-4.8) k/uL Monocytes # (Manual) 1.10 H (0-1.0) k/uL Macrocytosis Marked A PT (10.0-12.5) sec INR (<1.2) Sodium (137-145) mmol/L Chloride (98-107) mmol/L BUN (7-17) mg/dL Creatinine (0.52-1.04) mg/dL Glucose (74-99) mg/dL POC Glucose (mg/dL) 283 H (70-110) mg/dL Calcium (8.4-10.2) mg/dL Total Bilirubin (0.2-1.3) mg/dL Alkaline Phosphatase (38-126) U/L Total Protein (6.3-8.2) g/dL Albumin (3.5-5.0) g/dL Urine Protein (Negative) C. difficile (EIA) Intrp Positive A (Negative) Thrombosis Risk Factor Assmnt - Choose All That Apply Any of the Below Risk Factors Present?: Yes Each Factor Represents 1 point: Obesity (BMI >25), Swollen legs (current) Each Risk Factor Represents 3 Points: Age 75 years or older Thrombosis Risk Factor Assessment Total Risk Factor Score: 5 Thrombosis Risk Factor Assessment Level: High Risk
[2025-01-11 20:18] LABS: Glucose,Whole Blood 235 mg/dL (70-110)
[2025-01-12 05:57] LABS: Anisocytosis Slight; Basophils % (A) 0 %; Eosinophils # (A) 0.2 k/uL (0-0.7); Eosinophils % (A) 1 %; HCT 30.1 % (34.0-46.0); HGB 9.7 gm/dL (11.4-16.0); Hypochromasia Slight; Lymphocytes # (A) 0.6 k/uL (1.0-4.8); Lymphocytes % (A) 5 %; MCH 35.5 pg (25.0-35.0); MCHC 32.3 g/dL (31.0-37.0); Macrocytosis Marked; Mean Platelet Volume 12.6; Monocytes # (A) 0.8 k/uL (0-1.0); Monocytes % (A) 7 %; Neutrophils # (A) 10.5 k/uL (1.3-7.7); Neutrophils % (A) 85 %; Platelet Count 136 k/uL (150-450); RBC 2.73 m/uL (3.80-5.40); WBC 12.4 k/uL (3.8-10.6)
[2025-01-12 06:14] LABS: African American GFR (CKD) 17 (>60 ml/min/1.73 sqM); Anion Gap 8 mmol/L; Blood Urea Nitrogen 91 mg/dL (7-17); Carbon Dioxide 28 mmol/L (22-30); Chloride 90 mmol/L (98-107); Glucose 122 mg/dL (74-99); Non-African American GFR(CKD) 14 (>60 ml/min/1.73 sqM); Sodium 126 mmol/L (137-145)
[2025-01-12 06:24] LABS: MCV 110.1 fL (80.0-100.0)
[2025-01-12 07:35] LABS: Glucose,Whole Blood 125 mg/dL (70-110)
[2025-01-12 12:09] LABS: Glucose,Whole Blood 157 mg/dL (70-110)
[2025-01-12 12:29] LABS: % Iron Saturation 12.5 (12.00-45.00)
--- NOTE | 2025-01-12 15:10 | P.PN ---
Progress Note - Text Progress Note Date: 01/12/25 Chief Complaint: Weak and tired Pleasant 79-year-old patient follows with Dr. Jayesh Watson. Chronic stable medical conditions include CAD with stent , duodenal ulcer, irritable bowel syndrome, osteoarthritis, peripheral neuropathy in both hand and feet, hyperuricemia. Patient is discharged from rehab 2 days ago from [facility]. Has been admitted there following cholecystectomy. Patient was feeling very weak. Could just about transfer to the commode. Decreased appetite. Patient states she has been having at least 3-4 bowel movements a day for close to a month. As she could not able to make it she presented to the ER. Overnight patient stool tested positive for C. difficile. Started on vancomycin. January 12: Some improvement in frequency of diarrhea. Eating a bit better. Stepson at the bedside. Continue with oral vancomycin. Will be cautious with IV fluids give 50 cc an hour. Given CHF. Consult nephrology Active Medications Acetaminophen (Acetaminophen Tab 325 Mg Tab) 650 mg PO Q6HR PRN PRN Reason: Mild Pain or Fever > 100.5 Aspirin (Aspirin 81 Mg) 81 mg PO DAILY [facility] Last Admin: 01/12/25 08:43 Dose: 81 mg Clopidogrel Bisulfate (Clopidogrel 75 Mg Tab) 75 mg PO DAILY [facility] Last Admin: 01/12/25 08:43 Dose: 75 mg Dextrose/Water (Dextrose 50% Syringe 50 Ml) 25 ml IVP PER PROTOCOL PRN; Protocol PRN Reason: Hypoglycemia Dextrose/Water (Dextrose 50% Syringe 50 Ml) 50 ml IVP PER PROTOCOL PRN; Alejandrina col PRN Reason: Hypoglycemia Diphenhydramine HCl (Diphenhydramine 25 Mg Cap) 25 - 50 mg PO QID PRN PRN Reason: Itching Last Admin: 01/12/25 14:12 Dose: 25 mg Famotidine (Famotidine 20 Mg Tab) 20 mg PO DAILY [facility] Last Admin: 01/12/25 08:43 Dose: 20 mg Ferrous Sulfate (Ferrous Sulfate 325 Mg Tab) 325 mg PO DAILY [facility] Last Admin: 01/12/25 08:43 Dose: 325 mg Sodium Chloride (Saline 0.9%) 1,000 mls @ 100 mls/hr IV .Q10H [facility] Insulin Glargine (Insulin Glargine (Lantus) 100 Unit/Ml Syr) 10 unit SQ [facility] Last Admin: 01/11/25 22:58 Dose: 10 unit Insulin Human Lispro (Insulin Lispro (Humalog) 100 Unit/Ml 10 Ml Vl) 0 unit SQ ACHS [facility]; Protocol Last Admin: 01/12/25 13:27 Dose: 1 unit Metoprolol Succinate (Metoprolol Succinate (Er) 25 Mg Tab.Er.24h) 25 mg PO BID [facility] Last Admin: 01/12/25 08:43 Dose: 25 mg Naloxone HCl (Naloxone 0.4 Mg/Ml 1 Ml Vial) 0.2 mg IV Q2M PRN PRN Reason: Opioid Reversal Ondansetron HCl (Ondansetron 4 Mg/2 Ml Vial) 4 mg IVP Q8HR PRN PRN Reason: Nausea And Vomiting Last Admin: 01/12/25 08:43 Dose: 4 mg Vancomycin HCl (Vancomycin 125 Mg Capsule) 125 mg PO QID [facility]; Protocol Last Admin: 01/12/25 13:27 Dose: 125 mg Social history: Lives alone. No smoking or alcohol. Does use a walker. Physical examination: VITAL SIGNS: 98.2, 71, 15, 111 x 66, 94% room air GENERAL: BMI 29.2, laying in bed appears better, scattered bruising EYES: Pupils equal. Conjunctiva normal. HEENT: External appearance of nose and ears normal, oral cavity grossly normal. No dentures. NECK: JVD possibly raised; masses not palpable. HEART: First and second heart sounds are normal; edema present LUNGS: Respiratory rate normal; clear to auscultation. ABDOMEN: Soft, nontender, liver spleen not palpable, no masses palpable. PSYCH: Alert and oriented x3; mood and affect tired l. MUSCULOSKELETAL:No Clubbing/cyanosis;muscles-grossly intact. OA INVESTIGATIONS, reviewed in the clinical context: January 12: White count 12.4 hemoglobin 9.7 platelets 136 sodium 126 potassium 5 BUN 91 creatinine 2.94# HbA1c 6.3 iron 18 TIBC 144% saturation 12.5 transferrin 103 ferritin 202 vitamin B12 711 folate 11.8 January 10: White count 13.8 hemoglobin 9 platelets 103 sodium 127 potassium 5.1 BUN 89 creatinine 2.69 albumin 2.5 proBNP 35314 C. difficile positive Influenza type A, type B, RSV, SARS-CoV-2: Not detected EKG tracing personally reviewed by me-atrial ventricular pacing Chest x-ray film personally reviewed by me-cardiomegaly 2023 2-D echocardiogram EF 25-30%. Hypokinesia of certain william. Aortic valve sclerosis. Moderate mitral and tricuspid regurgitation. Assessment and plan: -Acute C. difficile colitis, symptoms present for close to a month causing severe asthenia weakness: Slow to respond Vancomycin 125 mg p.o. 4 times daily. Soft diet - chronic congestive heart failure from systolic dysfunction EF 25-30%, Normally takes Demadex. Currently clinically dehydrated. Hold the same. -Acute medical asthenia from C. difficile colitis PT OT -Iron deficiency and anemia and anemia of chronic kidney disease IV Ferrlecit. Will also need EPO supplement -Chronic kidney disease stage III. Likely nephrosclerosis., Possibly diabetic nephropathy Follow renal function Nephrology consulted -Mild thrombocytopenia Follow CBC -Chronic irritable bowel syndrome -Primary osteoarthritis Tylenol as needed -Peptic ulcer disease, duodenal ulcer Protonix 40 mg a day -Diabetic peripheral neuropathy Neurontin -Hyperuricemia Allopurinol -Chronic gait dysfunction, uses a walker at baseline -Diabetes mellitus type 2, chronically on insulin Levemir. Sliding scale insulin coverage -Full code. Patient's son is the POA Past Medical History Past Medical History: Chest Pain / Angina, Diabetes Mellitus, Myocardial Infarction ([place]) Additional Past Medical History / Comment(s): Kidney failure CKD Stage III, CHF, [place] x3 Last Myocardial Infarction Date:: 2015 History of Any Multi-Drug Resistant Organisms: None Reported Past Surgical History: Appendectomy, Heart Catheterization With Stent, Hysterectomy, Pacemaker Additional Past Surgical History / Comment(s): CABG, Valve Repair, Cardiac Stents x7, gallbladder stent Past Anesthesia/Blood Transfusion Reactions: No Reported Reaction Date of Last Stent Placement:: 2015 Type of Cardiac Device: AICD Device Placement Date:: 2015 Past Psychological History: No Psychological Hx Reported Smoking Status: Former smoker Past Alcohol Use History: None Reported Past Drug Use History: None Reported
[2025-01-12] MEDS: ENOXAPARIN 30 MG/0.3 ML SYRINGE SQ SCH (16:14)
[2025-01-12] MEDS: SODIUM CHLORIDE 0.9% 1,000 ML IV SCH (16:14)
[2025-01-12 17:17] LABS: Glucose,Whole Blood 195 mg/dL (70-110)
[2025-01-12 20:42] LABS: Glucose,Whole Blood 126 mg/dL (70-110)
[2025-01-13 06:04] LABS: Anisocytosis Slight; Basophils % (A) 0 %; Eosinophils # (A) 0.2 k/uL (0-0.7); Eosinophils % (A) 1 %; HGB 9.8 gm/dL (11.4-16.0); Hypochromasia Moderate; Lymphocytes # (A) 0.7 k/uL (1.0-4.8); Lymphocytes % (A) 5 %; MCH 35.1 pg (25.0-35.0); MCHC 31.8 g/dL (31.0-37.0); MCV 110.4 fL (80.0-100.0); Mean Platelet Volume 11.4; Monocytes % (A) 8 %; Neutrophils # (A) 10.4 k/uL (1.3-7.7); Neutrophils % (A) 83 %; Platelet Count 172 k/uL (150-450); RBC 2.81 m/uL (3.80-5.40); RDW 16.3 % (11.5-15.5); WBC 12.6 k/uL (3.8-10.6)
[2025-01-13 06:05] LABS: African American GFR (CKD) 17 (>60 ml/min/1.73 sqM); Anion Gap 8 mmol/L; Blood Urea Nitrogen 86 mg/dL (7-17); Carbon Dioxide 29 mmol/L (22-30); Chloride 92 mmol/L (98-107); Glucose 90 mg/dL (74-99); Non-African American GFR(CKD) 15 (>60 ml/min/1.73 sqM); Potassium 5.1 mmol/L (3.5-5.1); Sodium 129 mmol/L (137-145)
[2025-01-13 06:12] LABS: Macrocytosis Marked
[2025-01-13 07:18] LABS: Glucose,Whole Blood 118 mg/dL (70-110)
--- NOTE | 2025-01-13 09:17 | P.NPCON ---
History of Present Illness - Reason for Consult acute renal failure, chronic renal failure - History of Present Illness Reason for consultation: Acute kidney injury on chronic kidney disease History of present illness: Patient is a 79-year-old female seen in renal consultation for acute kidney injury on chronic kidney disease. Patient has chronic kidney disease stage IV secondary to diabetic kidney disease and cardiorenal syndrome with baseline creatinine near 2. Patient's creatinine this admission has been mostly in the range of 2.6-2.8. Patient was recently admitted at [facility] and had a gallbladder stent placed in November 2024. She then went to inpatient rehab and went home. Patient felt extremely weak and was unable to do activities of daily living and was subsequently brought back to the hospital. She was only home for 1 day. Patient has a longstanding history of diabetes. Patient also has multiple cardiac stents and also underwent CABG with valve repair. She does have edema in the lower extremities. Has been voiding. Denies gross hematuria or dysuria. Denies use of nonsteroidals. Oral intake has been poor the last few days. No vomiting. Does admit to nausea and loose bowel movements. Tested positive for C. difficile. Vital signs are stable. General: No acute distress. HEENT: Head exam is unremarkable. LUNGS: No audible rhonchi or wheezes. HEART: Rate and Rhythm are regular. ABDOMEN: Nontender. EXTREMITITES: 2+ edema. Past Medical History Past Medical History: Chest Pain / Angina, Diabetes Mellitus, Myocardial Infarction ([place]) Additional Past Medical History / Comment(s): Kidney failure CKD Stage III, CHF, [place] x3 Last Myocardial Infarction Date:: 2015 History of Any Multi-Drug Resistant Organisms: None Reported Past Surgical History: Appendectomy, Heart Catheterization With Stent, Hysterectomy, Pacemaker Additional Past Surgical History / Comment(s): CABG, Valve Repair, Cardiac Stents x7, gallbladder stent Past Anesthesia/Blood Transfusion Reactions: No Reported Reaction Date of Last Stent Placement:: 2015 Type of Cardiac Device: AICD Device Placement Date:: 2015 Past Psychological History: No Psychological Hx Reported Smoking Status: Former smoker Past Alcohol Use History: None Reported Past Drug Use History: None Reported - Past Family History Father Family Medical History: Renal Disease Additional Family Medical History / Comment(s): Father passed from renal failure Mother Family Medical History: Myocardial Infarction ([place]) Additional Family Medical History / Comment(s): Mother from heart attack Medications and Allergies Home Medications Medication Instructions Recorded Confirmed Type ALPRAZolam [Xanax] 0.25 mg PO Q8H PRN 08/16/23 01/10/25 History Aspirin EC [Ecotrin Low Dose] 81 mg PO DAILY 08/16/23 01/10/25 History Clopidogrel [Plavix] 75 mg PO DAILY 08/16/23 01/10/25 History Ferrous Sulfate [Iron (65 MG 325 mg PO DAILY 08/16/23 01/10/25 History Elemental)] Insulin Aspart [NovoLOG Flexpen] See Protocol SQ ACHS 08/16/23 01/10/25 History Insulin Glargine,Hum.rec.anlog 10 units SQ HS 08/16/23 01/10/25 History [Lantus Solostar Pen] Acetaminophen Tab [Tylenol] 650 mg PO Q4H PRN 01/10/25 01/10/25 History Loperamide HCl [Loperamide] 2 mg PO Q4H PRN 01/10/25 01/10/25 History Metoprolol Succinate (ER) [Toprol 25 mg PO BID 01/10/25 01/10/25 History Xl] Multivitamins, Thera [Multivitamin 1 tab PO DAILY 01/10/25 01/10/25 History (formulary)] Torsemide [Demadex] 20 mg PO DAILY 01/10/25 01/10/25 History Allergies Allergy/AdvReac Type Severity Reaction Status Date / Time cephalexin [From Keflex] Allergy Rash/Hives Verified 01/10/25 15:51 ciprofloxacin [From Cipro] Allergy Anaphylaxis Verified 01/10/25 15:51 levofloxacin [From Levaquin] Allergy Anaphylaxis Verified 01/10/25 15:51 mushroom Allergy Anaphylaxis Verified 01/10/25 15:51 tramadol Allergy Anaphylaxis Verified 01/10/25 15:51 iodine AdvReac Face Verified 01/10/25 15:51 turned red, Edema morphine AdvReac Vomiting Verified 01/10/25 15:51 simvastatin AdvReac severe leg Verified 01/10/25 15:51 cramps Physical Exam Vitals: Vital Signs Temp Pulse Resp BP Pulse Ox 01/13/25 07:01 97.8 F 72 14 112/64 96 01/13/25 01:55 97.5 F L 76 12 96/55 95 01/12/25 21:33 70 118/70 95 01/12/25 19:58 97.8 F 80 14 137/83 95 01/12/25 12:02 98.2 F 71 15 111/66 94 L Intake and Output 01/12/25 01/13/25 01/13/25 22:59 06:59 14:59 Intake Total 240 120 Output Total 201 300 Balance 39 -180 Intake: Oral 240 120 Output: Urine 200 300 Urine/Stool Mix 1 Other: Voiding Method Diaper External Catheter # Bowel Movements 5 Results - Lab Results Most recent lab results Calcium 8.0 mg/dL (8.4-10.2) L 01/13/25 05:16 Magnesium 2.0 mg/dL (1.6-2.3) 01/13/25 05:16 01/13/25 05:16 01/13/25 05:16 Assessment and Plan Plan: Assessment: 1. Acute kidney injury secondary to ATN. Creatinine 2.6-2.9 this admission. 2. Hypervolemic hyponatremia. 3. Chronic kidney disease stage IV baseline creatinine near 2 secondary to diabetic kidney disease and cardiorenal syndrome. 4. Coronary disease status post cardiac stenting and CABG. 5. Diabetes mellitus. 6. Anemia of chronic kidney disease. Iron deficiency noted. 7. Generalized weakness. 8. C. difficile colitis maintained on oral vancomycin. 9. Volume overload. 10. Chronic systolic CHF ejection fraction of 25 to 30%. Plan: Hep-Lock IV fluids. Add torsemide 20 mg once daily. Encouraged oral intake. Avoid nephrotoxins. Add IV iron. Continue to monitor renal function and urine output. Patient requesting a meeting with hospice. Thank you for the consultation. I will continue to follow the patient with you during her hospital stay.
[2025-01-13] MEDS: TORSEMIDE 20 MG TAB PO SCH (09:44)
[2025-01-13] MEDS: SODIUM FERRIC GLUCONAT-SUCROSE 125 MG in SODIUM CHLORIDE 0.9% 100 ML IVPB SCH (09:44)
--- NOTE | 2025-01-13 10:44 | P.PN ---
Subjective Pleasant 79-year-old patient follows with Dr. Jayesh Watson. Chronic stable medical conditions include CAD with stent , duodenal ulcer, irritable bowel syndrome, osteoarthritis, peripheral neuropathy in both hand and feet, hyperuricemia. Patient is discharged from rehab 2 days ago from [facility]. Has been admitted there following cholecystectomy. Patient was feeling very weak. Could just about transfer to the commode. Decreased appetite. Patient states she has been having at least 3-4 bowel movements a day for close to a month. As she could not able to make it she presented to the ER. Overnight patient stool tested positive for C. difficile. Started on vancomycin. January 12: Some improvement in frequency of diarrhea. Eating a bit better. Stepson at the bedside. Continue with oral vancomycin. Will be cautious with IV fluids give 50 cc an hour. Given CHF. Consult nephrology 01/13 Patient is a carolyn 79 years old female who presents with acute C. difficile colitis, currently on oral vancomycin, she had 3 bowel movements yesterday and 1 early childhood assistant. She still has abdominal cramps here and there. No significant urinary symptoms No chest pain or dyspnea. Mentation at baseline. She has 2+ bilateral pitting leg edema, both legs are elevated. Patient and son at bedside send requesting hospice consult for information. Patient has multiple hospitalization and she might benefit from more palliative approach as per patient and family. Review of systems CONSTITUTIONAL: No fever, no fatigue. HEENT: No recent visual problems or hearing problems. Denied any sore throat. CARDIOVASCULAR: No orthopnea, PND, no palpitations, no syncope. PULMONARY: No shortness of breath, no cough, no hemoptysis. NEUROLOGICAL: No headaches, no weakness, no numbness. HEMATOLOGICAL: Denies any bleeding or petechiae. Active Medications Generic Name Dose Route Start Last Admin Trade Name Freq PRN Reason Stop Dose Admin Acetaminophen 650 mg 01/10/25 17:57 Acetaminophen Tab 325 Mg Tab PO Q6HR PRN Mild Pain or Fever > 100.5 Aspirin 81 mg 01/11/25 09:00 01/13/25 08:21 Aspirin 81 Mg PO 81 mg DAILY OLEG Administration Clopidogrel Bisulfate 75 mg 01/11/25 09:00 01/13/25 08:21 Clopidogrel 75 Mg Tab PO 75 mg DAILY OLEG Administration Dextrose/Water 25 ml 01/11/25 08:13 Dextrose 50% Syringe 50 Ml IVP PER PROTOCOL PRN Hypoglycemia Protocol Dextrose/Water 50 ml 01/11/25 08:13 Dextrose 50% Syringe 50 Ml IVP PER PROTOCOL PRN Hypoglycemia Protocol Diphenhydramine HCl 25 - 50 mg 01/11/25 00:08 01/12/25 14:12 Diphenhydramine 25 Mg Cap PO 25 mg QID PRN Administration Itching Enoxaparin Sodium 30 mg 01/12/25 15:30 01/13/25 08:22 Enoxaparin 30 Mg/0.3 Ml Syringe SQ 30 mg DAILY OLEG Administration Famotidine 20 mg 01/10/25 21:15 01/13/25 08:21 Famotidine 20 Mg Tab PO 20 mg DAILY OLEG Administration Ferric Sodium Gluconate 125 mg 110 mls @ 100 mls/hr 01/13/25 10:00 01/13/25 09:44 / Sodium Chloride IVPB 01/16/25 09:59 100 mls/hr DAILY OLEG Administration Insulin Glargine 10 unit 01/10/25 21:00 01/12/25 21:51 Insulin Glargine (Lantus) 100 Unit/Ml Syr SQ 10 unit HS OLEG Administration Insulin Human Lispro 0 unit 01/11/25 12:30 01/13/25 07:26 Insulin Lispro (Humalog) 100 Unit/Ml 10 Ml Vl SQ Not Given ACHS [facility] Protocol Metoprolol Succinate 25 mg 01/10/25 21:00 01/13/25 08:21 Metoprolol Succinate (Er) 25 Mg Tab.Er.24h PO 25 mg BID OLEG Administration Naloxone HCl 0.2 mg 01/10/25 17:57 Naloxone 0.4 Mg/Ml 1 Ml Vial IV Q2M PRN Opioid Reversal Ondansetron HCl 4 mg 01/13/25 09:30 Ondansetron 4 Mg/2 Ml Vial IVP Q6HR PRN Nausea And Vomiting Torsemide 20 mg 01/13/25 09:30 01/13/25 09:44 Torsemide 20 Mg Tab PO 20 mg DAILY OLEG Administration Vancomycin HCl 125 mg 01/11/25 07:00 01/13/25 08:21 Vancomycin 125 Mg Capsule PO 125 mg QID OLEG Administration Protocol Objective - Vital Signs Vital signs: Vital Signs Temp 97.8 F 01/13/25 07:01 Pulse 72 01/13/25 07:01 Resp 14 01/13/25 07:01 BP 112/64 01/13/25 07:01 Pulse Ox 96 01/13/25 07:01 FiO2 Intake & Output 01/12/25 01/13/25 01/13/25 18:59 06:59 18:59 Intake Total 480 120 Output Total 200 301 Balance 280 -181 Intake: Oral 480 120 Output: Urine 200 300 Urine/Stool Mix 1 Other: Voiding Method Diaper Diaper External Catheter External Catheter # Bowel Movements 5 - Exam -GENERAL: The patient is alert and oriented x3, not in any acute distress. Well developed, well nourished. Generally weak HEENT: Pupils are round and equally reacting to light. EOMI. No scleral icterus. No conjunctival pallor. Normocephalic, atraumatic. No pharyngeal erythema. No thyromegaly. CARDIOVASCULAR: S1 and S2 present. No murmurs, rubs, or gallops. PULMONARY: Chest is clear to auscultation, no wheezing , no crackles. ABDOMEN: Soft, nontender, nondistended, normoactive bowel sounds. No palpable organomegaly. MUSCULOSKELETAL: No joint swelling or deformity. -EXTREMITIES: No cyanosis, clubbing.2+ bilateral pitting leg edema. NEUROLOGICAL: Gross neurological examination did not reveal any focal deficits. SKIN: No rashes. no petechiae. - Labs CBC & Chem 7: 01/13/25 05:16 01/13/25 05:16 Labs: Abnormal Lab Results - Last 24 Hours (Table) 01/12/25 01/12/25 01/12/25 Range/Units 05:11 12:05 17:15 WBC (3.8-10.6) k/uL RBC (3.80-5.40) m/uL Hgb (11.4-16.0) gm/dL Hct (34.0-46.0) % MCV (80.0-100.0) fL MCH (25.0-35.0) pg RDW (11.5-15.5) % Neutrophils # (1.3-7.7) k/uL Lymphocytes # (1.0-4.8) k/uL Macrocytosis Sodium (137-145) mmol/L Chloride (98-107) mmol/L BUN (7-17) mg/dL Creatinine (0.52-1.04) mg/dL POC Glucose (mg/dL) 157 H 195 H (70-110) mg/dL Calcium (8.4-10.2) mg/dL Iron 18 L (50-170) UG/DL TIBC 144 L (228-460) UG/DL Transferrin 103.0 L (204.0-354.0) mg/dL 01/12/25 01/13/25 01/13/25 Range/Units 20:40 05:16 05:16 WBC 12.6 H (3.8-10.6) k/uL RBC 2.81 L (3.80-5.40) m/uL Hgb 9.8 L (11.4-16.0) gm/dL Hct 31.0 L (34.0-46.0) % MCV 110.4 H (80.0-100.0) fL MCH 35.1 H (25.0-35.0) pg RDW 16.3 H (11.5-15.5) % Neutrophils # 10.4 H (1.3-7.7) k/uL Lymphocytes # 0.7 L (1.0-4.8) k/uL Macrocytosis Marked A Sodium 129 L (137-145) mmol/L Chloride 92 L (98-107) mmol/L BUN 86 H (7-17) mg/dL Creatinine 2.85 H (0.52-1.04) mg/dL POC Glucose (mg/dL) 126 H (70-110) mg/dL Calcium 8.0 L (8.4-10.2) mg/dL Iron (50-170) UG/DL TIBC (228-460) UG/DL Transferrin (204.0-354.0) mg/dL 01/13/25 Range/Units 07:04 WBC (3.8-10.6) k/uL RBC (3.80-5.40) m/uL Hgb (11.4-16.0) gm/dL Hct (34.0-46.0) % MCV (80.0-100.0) fL MCH (25.0-35.0) pg RDW (11.5-15.5) % Neutrophils # (1.3-7.7) k/uL Lymphocytes # (1.0-4.8) k/uL Macrocytosis Sodium (137-145) mmol/L Chloride (98-107) mmol/L BUN (7-17) mg/dL Creatinine (0.52-1.04) mg/dL POC Glucose (mg/dL) 118 H (70-110) mg/dL Calcium (8.4-10.2) mg/dL Iron (50-170) UG/DL TIBC (228-460) UG/DL Transferrin (204.0-354.0) mg/dL Assessment and Plan Assessment: Assessment and plan: -Acute C. difficile colitis, symptoms present for close to a month causing severe asthenia weakness: Slow to respond Vancomycin 125 mg p.o. 4 times daily. Soft diet - chronic congestive heart failure from systolic dysfunction EF 25-30%, Normally takes Demadex. Currently clinically dehydrated. Hold the same. -Acute medical asthenia from C. difficile colitis PT OT Patient and son requesting hospice team consult for information -Iron deficiency and anemia and anemia of chronic kidney disease IV Ferrlecit. Will also need EPO supplement -Acute kidney injury on chronic kidney disease stage III. Likely nephrosclerosis., Possibly diabetic nephropathy Follow renal function Nephrology consulted -Hyponatremia, could be related to hypovolemia and diarrhea with dehydration Improving Nephrology team on the case -Mild thrombocytopenia Follow CBC -Chronic irritable bowel syndrome -Primary osteoarthritis Tylenol as needed -Peptic ulcer disease, duodenal ulcer Protonix 40 mg a day -Diabetic peripheral neuropathy Neurontin -Hyperuricemia Allopurinol -Chronic gait dysfunction, uses a walker at baseline -Diabetes mellitus type 2, chronically on insulin Levemir. Sliding scale insulin coverage -Full code. Patient's son is the A
[2025-01-13 12:09] LABS: Glucose,Whole Blood 170 mg/dL (70-110)
[2025-01-13 17:32] LABS: Glucose,Whole Blood 151 mg/dL (70-110)
[2025-01-13 19:26] VITALS: RESP 16
[2025-01-13 20:15] LABS: Glucose,Whole Blood 247 mg/dL (70-110)
[2025-01-13] MEDS: ONDANSETRON 4 MG/2 ML VIAL IVP PRN (22:44)
[2025-01-14 07:07] LABS: Glucose,Whole Blood 104 mg/dL (70-110)
[2025-01-14 08:56] LABS: BUN/Creat Ratio 27.31 Ratio (12.00-20.00); Blood Urea Nitrogen 79.2 mg/dL (9.0-27.0); Calcium 8.2 mg/dL (8.7-10.3); Carbon Dioxide 27.2 mmol/L (21.6-31.8); Chloride 95 mmol/L (96-109); Glucose 107 mg/dL (70-110); Potassium 5.1 mmol/L (3.5-5.5); Sodium 132 mmol/L (135-145)
--- NOTE | 2025-01-14 10:00 | P.PN ---
Subjective Patient is seen in follow-up for acute kidney injury on chronic kidney disease. Renal function fairly stable. Tolerating oral intake. Patient has decided to proceed with hospice. Vital signs are stable. General: No acute distress. HEENT: Head exam is unremarkable. LUNGS: No audible rhonchi or wheezes. HEART: Rate and Rhythm are regular. ABDOMEN: Nontender. EXTREMITITES: 1+ edema. Objective - Vital Signs Vital signs: Vital Signs Temp 98.4 F 01/14/25 08:00 Pulse 82 01/14/25 08:00 Resp 16 01/14/25 08:00 BP 121/78 01/14/25 08:00 Pulse Ox 95 01/14/25 08:00 FiO2 Intake & Output 01/13/25 01/14/25 01/14/25 18:59 06:59 18:59 Intake Total 360 827 714 Output Total 500 700 Balance -140 127 714 Intake: Oral 360 827 714 Output: Urine 500 700 Other: Voiding Method Diaper Diaper External Catheter External Catheter # Bowel Movements 1 - Labs CBC & Chem 7: 01/13/25 05:16 01/14/25 04:25 Labs: Abnormal Lab Results - Last 24 Hours (Table) 01/13/25 01/13/25 01/13/25 Range/Units 05:16 05:16 06:20 Sodium (135-145) mmol/L Chloride (96-109) mmol/L BUN (9.0-27.0) mg/dL Creatinine (0.6-1.5) mg/dL Est GFR (CKD-EPI) (>=60) BUN/Creatinine Ratio (12.00-20.00) Ratio POC Glucose (mg/dL) (70-110) mg/dL Osmolality 303 H (275-295) mOsm/kg Calcium (8.7-10.3) mg/dL Procalcitonin 0.56 H (0.02-0.50) ng/mL Urine Osmolality 384 L (400-1100) mOsm/kg 01/13/25 01/13/25 01/13/25 Range/Units 12:08 17:24 20:14 Sodium (135-145) mmol/L Chloride (96-109) mmol/L BUN (9.0-27.0) mg/dL Creatinine (0.6-1.5) mg/dL Est GFR (CKD-EPI) (>=60) BUN/Creatinine Ratio (12.00-20.00) Ratio POC Glucose (mg/dL) 170 H 151 H 247 H (70-110) mg/dL Osmolality (275-295) mOsm/kg Calcium (8.7-10.3) mg/dL Procalcitonin (0.02-0.50) ng/mL Urine Osmolality (400-1100) mOsm/kg 01/14/25 Range/Units 04:25 Sodium 132 L (135-145) mmol/L Chloride 95 L (96-109) mmol/L BUN 79.2 H (9.0-27.0) mg/dL Creatinine 2.9 H (0.6-1.5) mg/dL Est GFR (CKD-EPI) 16 L (>=60) BUN/Creatinine Ratio 27.31 H (12.00-20.00) Ratio POC Glucose (mg/dL) (70-110) mg/dL Osmolality (275-295) mOsm/kg Calcium 8.2 L (8.7-10.3) mg/dL Procalcitonin (0.02-0.50) ng/mL Urine Osmolality (400-1100) mOsm/kg Assessment and Plan Plan: Assessment: 1. Acute kidney injury secondary to ATN. Creatinine 2.6-2.9 this admission. 2. Hypervolemic hyponatremia. Improved. 3. Chronic kidney disease stage IV baseline creatinine near 2 secondary to diabetic kidney disease and cardiorenal syndrome. 4. Coronary disease status post cardiac stenting and CABG. 5. Diabetes mellitus. 6. Anemia of chronic kidney disease. Iron deficiency noted. 7. Generalized weakness. 8. C. difficile colitis maintained on oral vancomycin. 9. Volume overload. Better with diuresis. 10. Chronic systolic CHF ejection fraction of 25 to 30%. Plan: Maintain torsemide. Encouraged oral intake. Avoid nephrotoxins. Maintain IV iron. Continue to monitor renal function and urine output. Patient has decided to proceed with hospice.
[2025-01-14 11:51] VITALS: BP 123/57; PULSE 72; TEMP 98.3
[2025-01-14 12:01] LABS: Glucose,Whole Blood 129 mg/dL (70-110)
--- NOTE | 2025-01-14 14:15 | P.DS ---
Providers Date of admission: 01/10/25 17:57 Attending physician: Papo Matthew Consults: 01/12/25 15:10 Consult Physician Routine Consulting Provider: Carmina Rodgers Consult Reason/Comments: CKD Do you want consulting provider notified?: Yes Primary care physician: Jayesh Watson [facility] Course: Diagnoses: Acute C. difficile colitis Advanced chronic congestive heart failure with systolic dysfunction with a EF 25 to 30% Acute medical asthenia secondary to her infection and other medical probability. Patient is very weak. Patient and son talk to hospice team and proceeded with hospice care. Patient will be discharged to hospice home Iron deficiency anemia and anemia of chronic disease Acute kidney injury on chronic kidney disease stage III Hyponatremia Multiple mild thrombocytopenia Chronic irritable bowel syndrome Primary osteoarthritis Peptic ulcer disease and duodenal ulcer Diabetic peripheral neuropathy Hyperuricemia Chronic gait dysfunction using a walker at baseline Type 2 diabetes mellitus with hyperglycemia Diagnoses: This is a pleasant 79 years old female who presents because of generalized weakness found to have acute C. difficile colitis and hyponatremia and she has been placed on oral vancomycin. Patient remains generally weak. She still have diarrhea 1-3 times per day with no abdominal pain but tolerates diet. With no improvement the patient and son at bedside is both requested to talk to hospice team for information. After discussing the case with the hospice team the patient wants to proceed with hospice, they called me this morning urgently if that the patient and son want her to be discharged to home hospice. Plan discussed with the patient and son in details and they verbalized understanding and acceptance. Both confirmed to me that they plan to go for hospice for the patient and that she is currently has DNR order. Patient mentation at baseline and she has capacity make medical decision Patient denies any other specific complaint used car sales manager on the case patient mentation at baseline and she has capacity make medical decision Patient denies any other specific complaint used car sales manager on the case Problems and management plan discussed with the patient and son at bedside and they verbalized understanding and acceptance Patient medically stable to be discharged to home hospice. She is DNR. Her prognosis is very poor. This looks appropriate After discussion with the patient and son they agreeable to discharge on some of her medications like oral vancomycin. And the heart medication Physical exam -Gen: patient is a AAOx3, no distress. Generally weak and declining CVS: S1-S2, RRR, no murmur Lungs: B/L CTA, no wheezing Abdomen: soft, no distention, no tenderness, positive bowel sounds Extremity: no leg edema or induration Time spent more than 35 minutes Plan - Discharge Summary Discharge Rx Participant: No New Discharge Prescriptions: New Famotidine [Pepcid] 40 mg PO DAILY #60 tab Vancomycin HCl [Vancocin HCl] 125 mg PO QID #120 cap Ondansetron Odt [Zofran Odt] 4 mg PO Q8HR PRN #90 tab PRN Reason: Nausea Continue Ferrous Sulfate [Iron (65 MG Elemental)] 325 mg PO DAILY Aspirin EC [Ecotrin Low Dose] 81 mg PO DAILY Acetaminophen Tab [Tylenol] 650 mg PO Q4H PRN PRN Reason: Pain Insulin Glargine,Hum.rec.anlog [Lantus Solostar Pen] 10 units SQ HS Insulin Aspart [NovoLOG Flexpen] See Protocol SQ ACHS Clopidogrel [Plavix] 75 mg PO DAILY ALPRAZolam [Xanax] 0.25 mg PO Q8H PRN PRN Reason: Anxiety Torsemide [Demadex] 20 mg PO DAILY Loperamide HCl [Loperamide] 2 mg PO Q4H PRN PRN Reason: Diarrhea Metoprolol Succinate (ER) [Toprol XL] 25 mg PO BID #60 tab Discontinued Multivitamins, Thera [Multivitamin (formulary)] 1 tab PO DAILY Discharge Medication List ALPRAZolam [Xanax] 0.25 mg PO Q8H PRN 08/16/23 [History] Aspirin EC [Ecotrin Low Dose] 81 mg PO DAILY 08/16/23 [History] Clopidogrel [Plavix] 75 mg PO DAILY 08/16/23 [History] Ferrous Sulfate [Iron (65 MG Elemental)] 325 mg PO DAILY 08/16/23 [History] Insulin Aspart [NovoLOG Flexpen] See Protocol SQ ACHS 08/16/23 [History] Insulin Glargine,Hum.rec.anlog [Lantus Solostar Pen] 10 units SQ HS 08/16/23 [History] Acetaminophen Tab [Tylenol] 650 mg PO Q4H PRN 01/10/25 [History] Loperamide HCl [Loperamide] 2 mg PO Q4H PRN 01/10/25 [History] Torsemide [Demadex] 20 mg PO DAILY 01/10/25 [History] Famotidine [Pepcid] 40 mg PO DAILY #60 tab 01/14/25 [Rx] Metoprolol Succinate (ER) [Toprol XL] 25 mg PO BID #60 tab 01/14/25 [Rx] Ondansetron Odt [Zofran Odt] 4 mg PO Q8HR PRN #90 tab 01/14/25 [Rx] Vancomycin HCl [Vancocin HCl] 125 mg PO QID #120 cap 01/14/25 [Rx] Follow up Appointment(s)/Referral(s): Jayesh Watson MD [Primary Care Provider] - 1-2 days Activity/Diet/Wound Care/Special Instructions: Regular diet Activity as tolerated Discharge Disposition: HOME WITH HOSPICE
== END 2025-01-14 13:53 | disposition hospice, home (50) | DRG 371 ==
LOC: EC 13:03 → 5NMEDONC 17:57
PROVIDERS: ADMIT Hospitalist; ATTEND Hospitalist
DX: A04.72 Enterocolitis due to Clostridium difficile, not specified as recurrent (principal); N17.0 Acute kidney failure with tubular necrosis; D69.6 Thrombocytopenia, unspecified; I50.22 Chronic systolic (congestive) heart failure; I13.0 Hypertensive heart and chronic kidney disease with heart failure and stage 1 through stage 4 chronic kidney disease, or unspecified chronic kidney disease; E87.1 Hypo-osmolality and hyponatremia; N18.4 Chronic kidney disease, stage 4 (severe); Z66 Do not resuscitate; D63.1 Anemia in chronic kidney disease; K26.9 Duodenal ulcer, unspecified as acute or chronic, without hemorrhage or perforation; E11.42 Type 2 diabetes mellitus with diabetic polyneuropathy; E11.65 Type 2 diabetes mellitus with hyperglycemia; E11.22 Type 2 diabetes mellitus with diabetic chronic kidney disease; Z79.4 Long term (current) use of insulin; E86.0 Dehydration; D50.9 Iron deficiency anemia, unspecified; K58.9 Irritable bowel syndrome, unspecified; M19.91 Primary osteoarthritis, unspecified site; E79.0 Hyperuricemia without signs of inflammatory arthritis and tophaceous disease; D53.9 Nutritional anemia, unspecified; R26.9 Unspecified abnormalities of gait and mobility; I25.10 Atherosclerotic heart disease of native coronary artery without angina pectoris; Z79.82 Long term (current) use of aspirin; Z88.1 Allergy status to other antibiotic agents; Z91.041 Radiographic dye allergy status; Z88.5 Allergy status to narcotic agent; Z91.018 Allergy to other foods; Z95.1 Presence of aortocoronary bypass graft; Z95.5 Presence of coronary angioplasty implant and graft; Z87.891 Personal history of nicotine dependence; I25.2 Old myocardial infarction; Z79.02 Long term (current) use of antithrombotics/antiplatelets; Z79.899 Other long term (current) drug therapy; Z90.710 Acquired absence of both cervix and uterus
CPT/HCPCS: 36415; 71046; 80048; 80053; 81003; 82607; 82728; 82746; 83036; 83540; 83550; 83605; 83735; 83880; 83930; 83935; 84145; 84484; 85025; 85610; 85730; 87324; 87636; 93005; 99285